=== PATIENT | female | born 1950 | race Caucasian/White ===

== ENCOUNTER → 2017-05-23 15:09 | Outpatient (CLI) | payer MEDICARE, SELFPAY ==
[2017-05-23 15:17] LABS: Bacteria 0 SEEN /hpf (None Seen); Mucous, Urine 0 SEEN /hpf (<or=2+); Red Blood Cells-Urine 0 SEEN /hpf (0-5); White Blood Cells 0 SEEN /hpf (0-5)
[2017-05-23 17:41] LABS: Absolute Lymphocyte Count 1.61 X10^3/ul (0.83-4.51); Absolute Neutrophil Count 7.2 X10^3/uL (2.0-7.7); Basophil# 0.03 X10^3/uL; Basophil% 0.3 % (0-1); Eosinophil# 0.23 X10^3/uL; Eosinophils% 2.4 % (0-5); Hematocrit 39.9 % (37-47); Hemoglobin 12.9 g/dl (12.0-15.0); Lymphocyte # 1.61 X10^3/ul (4.0); Lymphocyte % 16.6 % (19-41); Mean Corp Hgb Conc 32.3 g/gl (32-36); Mean Corpuscular Hgb 27.7 pg (27.0-32.0); Mean Corpuscular Volume 85.6 fL (81-99); Mean Platelet Vol. 12.1 fl (6.2-12.0); Monocyte# 0.64 X10^3/uL; Monocyte% 6.6 % (0-10); Neutrophil # 7.17 X10^3/uL (2.7-7.7); Neutrophil % 73.7 % (47-70); Platelet Count 190 K/mm3 (150-450); RBC Distribution Width CV 15.9 % (11.6-14.6); RBC Distribution Width SD 49.8 fl (35.1-43.9); Red Blood Count 4.66 M/mm3 (4.2-5.4); White Blood Count 9.7 K/mm3 (4.4-11.0)
[2017-05-23 17:51] LABS: POSITIVE COUNT NO; POSITIVE DIFFERENTIAL NO; POSITIVE MORPHOLOGY NO
[2017-05-23 18:05] LABS: Color, Urine Yellow (Yellow); Glucose, Dipstick Normal (Normal); Ketone-Dipstick Negative (Negative); Leukocyte Esterase-Dipstick Negative /ul (Negative); Nitrite-Dipstick Negative (Negative); Occult Blood-Urine Negative /ul (Negative); Protein-Dipstick Negative (Negative); Specific Gravity, Urine 1.015 (1.002-1.030); Urine Bilirubin Dipstick Negative (Negative); Urine Clarity Clear (Clear); Urine Urobilinogen Normal (Normal)
[2017-05-23 18:15] LABS: Squamous Epithelial Cells - UA 0-5 SEEN /hpf (5-10)
[2017-05-23 18:18] LABS: Hemoglobin A1c 7.4 % (4.2-6.3)
[2017-05-23 18:29] LABS: Vitamin D,25 Hydroxy 55.7 ng/mL (29.95-100.01)
[2017-05-23 18:31] LABS: Microalbumin,Random Urine 43.9 mg/L (NO RANGE EST.); Microalbumin:Creatinine Ratio 75.4 mg/g CRE (<30 mg/g CRE)
[2017-05-23 18:42] LABS: ALB/GLOB Ratio 0.8 RATIO (0.9-2.4); AST(SGOT) 13 U/L (15-37); Alanine Aminotransfer ALT/SGPT 25 U/L (13-56); Alkaline Phosphatase 154 U/L (45-117); Anion Gap 9 (5-15); BUN 25 mg/dL (7-18); BUN/Creat Ratio 22.5 RATIO (10-20); Calcium,Total 9.2 mg/dL (8.5-10.1); Chloride 104 mmol/L (98-107); Cholesterol 109 mg/dL (200); Creatinine, Serum 1.11 mg/dL (0.55-1.02); EST Glomerular Filtration Rate 52 mL/min (>60); Est Glom Filt Rate - Afr Amer 63 mL/min (>60); Globulin 3.8 g/dL (2.2-4.2); Glucose 241 mg/dL (74-106); High Density Lipoprotein 46 mg/dL; Magnesium 1.8 mg/dL (1.6-2.6); Potassium 4.1 mmol/L (3.5-5.1); Protein, Total 6.8 g/dL (6.4-8.2); Sodium Level 139 mmol/L (136-145); T4 Free Direct 0.97 ng/dL (0.76-1.46); Thyroid Stim Hormone (TSH) 1.64 uIU/mL (0.358-3.74); Triglycerides 134 mg/dL; Very Low Density Lipoprotein 27 mg/dL (5-40)
[2017-05-27 11:57] LABS: Anti-Thyroglobulin AB < 1.0 IU/mL (0.0-0.9); Thyroglobulin, Serum Qt. 10.3 ng/mL (1.5-38.5); Thyroid Peroxidase AB 17 IU/mL (0-34)
== END ==
PROVIDERS: Family Provider Family Medicine; PCP Family Medicine; Visit Provider Family Medicine
DX: I10 Essential (primary) hypertension (principal); E78.5 Hyperlipidemia, unspecified; E55.9 Vitamin D deficiency, unspecified; E03.9 Hypothyroidism, unspecified; E10.9 Type 1 diabetes mellitus without complications
CPT/HCPCS: 36415; 80053; 80061; 81001; 82043; 82306; 82570; 83036; 83735; 84432; 84439; 84443; 85025; 86376; 86800

== ENCOUNTER → 2017-05-27 09:24 | Outpatient (CLI) | payer MEDICARE, SELFPAY ==
[2017-05-27 12:10] LABS: Anion Gap 11 (5-15); BUN 25 mg/dL (7-18); BUN/Creat Ratio 19.7 RATIO (10-20); Calcium,Total 9.3 mg/dL (8.5-10.1); Chloride 106 mmol/L (98-107); Creatinine, Serum 1.27 mg/dL (0.55-1.02); EST Glomerular Filtration Rate 44 mL/min (>60); Est Glom Filt Rate - Afr Amer 54 mL/min (>60); Glucose 249 mg/dL (74-106); Potassium 4.1 mmol/L (3.5-5.1); Sodium Level 141 mmol/L (136-145)
== END ==
PROVIDERS: Family Provider Family Medicine; PCP Family Medicine; Visit Provider Family Medicine
DX: R94.4 Abnormal results of kidney function studies (principal)
CPT/HCPCS: 36415; 80048

== ENCOUNTER → 2017-06-18 14:43 | Outpatient (CLI) | payer MEDICARE, SELFPAY ==
--- NOTE | 2017-06-18 14:54 | US_ITS ---
STUDY: RENAL ULTRASOUND - COMPLETE REASON FOR EXAM: Female, 67 years old. Elevated BUN/creatinine TECHNIQUE: Ultrasound evaluation of the kidneys was performed with real-time and static lovell-scale imaging. COMPARISON: None. FINDINGS: RIGHT KIDNEY: Normal location of the right kidney, which is normal in size. The right kidney measures 11.7 x 4.9 x 5.3 cm. There is a normal cortex of the right kidney. The renal cortex measures 1.6 cm. There is no right renal mass or cyst. There are no right renal calculi. There is no right hydronephrosis. DISTAL RIGHT URETER: There is non-visualization of the distal right ureter. There is no demonstrated right ureterovesical junction calculus. There is a visualized right ureteral jet. LEFT KIDNEY: Normal location of the left kidney, which is normal in size. The left kidney measures 10.5 x 4.9 x 5.4 cm. There is a normal cortex of the left kidney. The renal cortex measures 1.5 cm. There is no left renal mass or cyst. There is a nonobstructing 8 mm stone. There is no left hydronephrosis. DISTAL LEFT URETER: There is non-visualization of the distal left ureter. There is no demonstrated left ureterovesical junction calculus. There is a visualized left ureteral jet. AORTA: There is no elongation or tortuosity of the abdominal aorta. I.V.C.: The IVC is patent. BLADDER: The bladder is incompletely distended US/Kidney and Bladder IMPRESSION: No suspicious sonographic findings Electronically Signed: Hernando Ross MD at 15:32 EDT , Service support ,
== END ==
PROVIDERS: Family Provider Family Medicine; PCP Family Medicine; Visit Provider Family Medicine
DX: N18.3 Chronic kidney disease, stage 3 (moderate) (principal)
CPT/HCPCS: 76770

== ENCOUNTER → 2017-06-27 08:58 | Outpatient (CLI) | payer MEDICARE, SELFPAY ==
--- NOTE | 2017-06-27 09:05 | RDU_ITS ---
Reason For Study: CKD Right Renal Artery Left Renal Artery Right renal artery ostium Left renal artery ostium 112.0/19.9 143.0/28.0 RSV/EDV. PSV/EDV. Right renal artery proximal Left renal artery proximal PSV/EDV 144.0/28.0 PSV/EDV. 121.0/21.0 . Right renal artery mid 117.0/22.8 Left renal artery mid 114.0/23.7 PSV/EDV. PSV/EDV . Right renal artery distal Left renal artery distal 104.0/19.2 108.0/15.9 PSV/EDV. PSV/EDV. Right Renal Parenchyma Left Renal Parenchyma Upper Pole Medula 39.1/7.9 PSV/EDV. Left upper pole medulla 35.6/8.7 Right upper pole medulla EDR .20 . PSV/EDV . Right upper pole medulla R.I. .80 . Left upper pole medulla EDR .24 . Upper Antonio Cortx 19.9/4.3 PSV/EDV. Left upper pole medulla R.I. .76 . Right upper pole cortex EDR .22 . UP Cortex 30.6/8.7 PSV/EDV. Right upper pole cortex R.I. .78 . Left upper pole cortex EDR .28 . Right lower Pole medulla 26.0/6.1 Left upper pole cortex R.I. .72 . PSV/EDV . Left lower Pole medulla 42.9/8.2 Right lower pole medulla EDR .23 . PSV/EDV . Right lower pole medulla R.I. .76 . Left lower pole medulla EDR .19 . Lower Pole Cortex 27.2/6.7 PSV/EDV. Left lower pole medulla R.I. .81 . Right lower pole cortex EDR .25 . Lower Pole Cortx 26.4/7.3 PSV/EDV. Right lower pole cortex R.I. .75 . Left lower pole cortex EDR .28 . Right Renal Hilar Left lower pole cortex R.I. .72 . Right Hilar avg 77.6/15.9 PSV/EDV. Left Renal Hilar Right hilar acceleration time 59 LT Hilar avg 49.2/8.2 PSV/EDV . m/sec. Left hilar acceleration time 44 Right Renal Dimensions m/sec. Right kidney size 12.1 cm . Left Renal Dimensions Right cortical dimension 1.5 cm . Left kidney size 12.0 cm . Left cortical dimension 1.5 cm . Procedures Technically difficult due to body habitus. Midline view and aorta not visualized. Interpretation Summary Renal artery velocities are bilaterally normal. Acceleration times are normal bilaterally. There is no evidence of hemodynamically significant renal artery stenosis on either side. Renovascular resistance appears to be bilaterally elevated . Cortical dimensions are bilaterally normal. Kidneys appear normal in size bilaterally. Ordering Physician: Declan Mauricio Referring Physician: Declan Mauricio Performed By: Beatriz Hardy RVT
== END ==
PROVIDERS: Family Provider Family Medicine; PCP Family Medicine; Visit Provider Family Medicine
DX: N18.3 Chronic kidney disease, stage 3 (moderate) (principal)
CPT/HCPCS: 93975

== ENCOUNTER → 2017-07-17 10:05 | Outpatient (CLI) | payer MEDICARE, SELFPAY ==
--- NOTE | 2017-07-17 10:09 | RAD_ITS ---
STUDY: X-RAY - RIGHT SHOULDER REASON FOR EXAM: Female, 67 years old. Right shoulder pain. TECHNIQUE: 4 view(s) of the shoulder. COMPARISON: None. FINDINGS: Normal glenohumeral articulation. There is degenerative arthrosis of the acromioclavicular joint without inferior osseous spur formation. Normal acromion. Normal humeral head and visualized proximal humerus. There is periarticular soft tissue calcification consistent with a calcific tendinitis. There is no demonstrated fracture. Normal visualized pulmonary apex. RAD/Shoulder min 2 Views IMPRESSION: No acute fracture or dislocation. Degenerative changes. Calcific tendinitis. Electronically Signed: Cesar Gaffney MD at 17:32 EDT , Service support ,
== END ==
LOC: MTRAD 10:07
PROVIDERS: Family Provider Family Medicine; PCP Family Medicine; Visit Provider Family Medicine
DX: M25.511 Pain in right shoulder (principal)
CPT/HCPCS: 73030

== ENCOUNTER → 2017-11-27 10:56 | Outpatient (CLI) | payer MEDICARE, SELFPAY ==
[2017-11-27 11:02] LABS: Mucous, Urine 0 SEEN /hpf (<or=2+); Red Blood Cells-Urine 0 SEEN /hpf (0-5)
[2017-11-27 12:36] LABS: Absolute Lymphocyte Count 1.68 X10^3/ul (0.83-4.51); Absolute Neutrophil Count 8.5 X10^3/uL (2.0-7.7); Basophil# 0.02 X10^3/uL; Basophil% 0.2 % (0-1); Eosinophil# 0.24 X10^3/uL; Eosinophils% 2.2 % (0-5); Hematocrit 40.6 % (37-47); Hemoglobin 12.6 g/dl (12.0-15.0); Lymphocyte # 1.68 X10^3/ul (4.0); Lymphocyte % 15.1 % (19-41); Mean Corpuscular Hgb 26.5 pg (27.0-32.0); Mean Corpuscular Volume 85.3 fL (81-99); Mean Platelet Vol. 11.7 fl (6.2-12.0); Monocyte# 0.64 X10^3/uL; Monocyte% 5.7 % (0-10); Neutrophil # 8.54 X10^3/uL (2.7-7.7); Neutrophil % 76.5 % (47-70); Platelet Count 162 K/mm3 (150-450); RBC Distribution Width CV 15.6 % (11.6-14.6); RBC Distribution Width SD 49.2 fl (35.1-43.9); Red Blood Count 4.76 M/mm3 (4.2-5.4); White Blood Count 11.2 K/mm3 (4.4-11.0)
[2017-11-27 12:37] LABS: POSITIVE COUNT NO; POSITIVE DIFFERENTIAL NO; POSITIVE MORPHOLOGY NO
[2017-11-27 12:39] LABS: ALB/GLOB Ratio 0.8 RATIO (0.9-2.4); AST(SGOT) 12 U/L (15-37); Alanine Aminotransfer ALT/SGPT 21 U/L (13-56); Alkaline Phosphatase 128 U/L (45-117); Anion Gap 9 (5-15); BUN 17 mg/dL (7-18); BUN/Creat Ratio 13.7 RATIO (10-20); Calcium,Total 9.8 mg/dL (8.5-10.1); Chloride 104 mmol/L (98-107); Cholesterol 101 mg/dL (200); Creatinine, Serum 1.24 mg/dL (0.55-1.02); EST Glomerular Filtration Rate 46 mL/min (>60); Est Glom Filt Rate - Afr Amer 55 mL/min (>60); Globulin 3.9 g/dL (2.2-4.2); Glucose 204 mg/dL (74-106); High Density Lipoprotein 44 mg/dL; Potassium 4.6 mmol/L (3.5-5.1); Protein, Total 6.9 g/dL (6.4-8.2); Sodium Level 143 mmol/L (136-145); Triglycerides 100 mg/dL; Very Low Density Lipoprotein 20 mg/dL (5-40)
[2017-11-27 12:40] LABS: Color, Urine Yellow (Yellow); Glucose, Dipstick Normal (Normal); Ketone-Dipstick Negative (Negative); Leukocyte Esterase-Dipstick Negative /ul (Negative); Nitrite-Dipstick Negative (Negative); Occult Blood-Urine Negative /ul (Negative); Protein-Dipstick 30 mg/dl (Negative); Specific Gravity, Urine 1.015 (1.002-1.030); Urine Bilirubin Dipstick Negative (Negative); Urine Clarity Clear (Clear); Urine Urobilinogen Normal (Normal)
[2017-11-27 12:50] LABS: Bacteria 1+ /hpf (None Seen); Squamous Epithelial Cells - UA 5-10 SEEN /hpf (5-10); White Blood Cells 0-5 SEEN /hpf (0-5)
[2017-11-27 13:00] LABS: Protein, Urine (Random) 44.8 mg/dL (<11.9); Protein:Creat Ratio 264 mg/g CRE (0-200)
[2017-11-28 11:53] LABS: PTHIN 90.7 pg/mL (18.4-80.1)
[2017-11-28 11:59] LABS: Vitamin D,25 Hydroxy 66.3 ng/mL (29.95-100.01)
== END ==
LOC: MFPLAB 10:57
PROVIDERS: Family Provider Family Medicine; PCP Family Medicine; Visit Provider Family Medicine
DX: I12.9 Hypertensive chronic kidney disease with stage 1 through stage 4 chronic kidney disease, or unspecified chronic kidney disease (principal); N18.3 Chronic kidney disease, stage 3 (moderate); E55.9 Vitamin D deficiency, unspecified; E78.5 Hyperlipidemia, unspecified; D35.1 Benign neoplasm of parathyroid gland
CPT/HCPCS: 36415; 80053; 80061; 81001; 82306; 82570; 83970; 84156; 85025

== ENCOUNTER → 2018-03-11 11:26 | Outpatient (CLI) | payer MEDICARE, SELFPAY ==
[2018-03-11 12:40] LABS: Absolute Lymphocyte Count 1.26 X10^3/ul (0.83-4.51); Absolute Neutrophil Count 6.5 X10^3/uL (2.0-7.7); Basophil# 0.02 X10^3/uL; Basophil% 0.2 % (0-1); Eosinophil# 0.22 X10^3/uL; Eosinophils% 2.6 % (0-5); Hematocrit 39.9 % (37-47); Hemoglobin 12.4 g/dl (12.0-15.0); Lymphocyte # 1.26 X10^3/ul (4.0); Lymphocyte % 14.9 % (19-41); Mean Corp Hgb Conc 31.1 g/gl (32-36); Mean Corpuscular Hgb 26.5 pg (27.0-32.0); Mean Corpuscular Volume 85.3 fL (81-99); Mean Platelet Vol. 10.8 fl (6.2-12.0); Monocyte# 0.47 X10^3/uL; Monocyte% 5.5 % (0-10); Neutrophil # 6.46 X10^3/uL (2.7-7.7); Neutrophil % 76.3 % (47-70); Platelet Count 163 K/mm3 (150-450); RBC Distribution Width CV 15.9 % (11.6-14.6); RBC Distribution Width SD 49.3 fl (35.1-43.9); Red Blood Count 4.68 M/mm3 (4.2-5.4); White Blood Count 8.5 K/mm3 (4.4-11.0)
[2018-03-11 12:41] LABS: POSITIVE COUNT NO; POSITIVE DIFFERENTIAL NO; POSITIVE MORPHOLOGY NO
[2018-03-11 12:52] LABS: ALB/GLOB Ratio 0.8 RATIO (0.9-2.4); AST(SGOT) 14 U/L (15-37); Alanine Aminotransfer ALT/SGPT 20 U/L (13-56); Albumin, Serum 2.9 g/dL (3.2-5.0); Alkaline Phosphatase 144 U/L (45-117); Anion Gap 8 (5-15); BUN 17 mg/dL (7-18); Calcium,Total 9.5 mg/dL (8.5-10.1); Chloride 104 mmol/L (98-107); Cholesterol 116 mg/dL (200); Creatinine, Serum 1.21 mg/dL (0.55-1.02); EST Glomerular Filtration Rate 47 mL/min (>60); Est Glom Filt Rate - Afr Amer 57 mL/min (>60); Globulin 3.6 g/dL (2.2-4.2); Glucose 323 mg/dL (74-106); High Density Lipoprotein 45 mg/dL; Potassium 4.4 mmol/L (3.5-5.1); Protein, Total 6.5 g/dL (6.4-8.2); Sodium Level 139 mmol/L (136-145); Triglycerides 160 mg/dL; Very Low Density Lipoprotein 32 mg/dL (5-40)
[2018-03-11 12:57] LABS: Hemoglobin A1c 8.7 % (4.2-6.3)
[2018-03-11 14:55] LABS: Microalbumin:Creatinine Ratio 419.2 mg/g CRE (<30 mg/g CRE); Protein, Urine (Random) 106.3 mg/dL (<11.9); Protein:Creat Ratio 601 mg/g CRE (0-200)
--- OUTSIDE RECORDS SUMMARY | 2018-06-12 15:30 | XMS RPT_ITS ---
:1950 Author Organization [place] Support Name Relationship Address Phone BIRD HAYDEN Unavailable [address] + [address] [place] [address] ESTEBAN REHMAN Unavailable [address] + [place] [address] R Unavailable Unavailable Unavailable BIRD, HAYDEN Unavailable [address] + [address] [place] [address] ESTEBAN REHMAN Unavailable [address] + [place] [address] R Unavailable Unavailable Unavailable BIRD, HAYDEN Unavailable [address] + [address] [place] [address] ESTEBAN REHMAN Unavailable [address] + [place] [address] R Unavailable Unavailable Unavailable BIRD, HAYDEN Unavailable [address] + [address] [place] [address] ESTEBAN REHMAN Unavailable [address] + [place] [address] R Unavailable Unavailable Unavailable BIRD, HAYDEN Unavailable [address] + [address] [place] [address] IRAIS REHMANISTA Unavailable [address] + [place] [address] R Unavailable Unavailable Unavailable BIRD, HAYDEN Unavailable [address] + [address] [place] [address] ESTEBAN REHMAN Unavailable [address] + [place] [address] R Unavailable Unavailable Unavailable BIRD, HAYDEN Unavailable [address] + [address] [place] [address] ESTEBAN REHMAN Unavailable [address] + [place] [address] R Unavailable Unavailable Unavailable Care Team Providers Name Role Phone Declan Mauricio Attending Unavailable Declan aMuricio Primary Care Unavailable Declan Mauricio Attending Unavailable Declan Mauricio Primary Care Unavailable Declan Mauricio Attending Unavailable Declan Mauricio Primary Care Unavailable Declan Mauricio Attending Unavailable Declan Mauricio Referring Unavailable Declan Mauricio Primary Care Unavailable Declan Mauricio Attending Unavailable Declan Mauricio Referring Unavailable Declan Mauricio Primary Care Unavailable Declan Mauricio Attending Unavailable Declan Mauricio Referring Unavailable Declan Mauricio Primary Care Unavailable Declan Mauricio Attending Unavailable Declan Mauricio Primary Care Unavailable PROBLEMS PROBLEMS DATE TYPE CONDITION / CODE ATTENDING STATUS SOURCE 07/17/2017 Unknown M25.511 - Pain Declan Mauricio Active [place] in right [facility] shoulder / Hospital M25.511(ICD-10) Repository 06/27/2017 Unknown N18.3 - Chronic Declan Mauricio Active [place] kidney disease, [facility] stage 3 Hospital (moderate) / Repository N18.3(ICD-10) PROCEDURES PROCEDURES No Procedure Records FoundRESULTS RESULTS CBC W/DIFF, AUTOMATED Collected: 03/11/2018 Status: F Source: [place] 11:28 AM [facility] REPOSITORY TYPE CODE TESTS RESULT OUT OF RANGE REFERENCE UNITS LAB L100.1000 4.4-11.0 K/mm3 Normal WBC 8.5 LAB L100.1200 4.2-5.4 M/mm3 Normal RBC 4.68 LAB L100.1300 12.0-15.0 g/dl Normal HGB 12.4 LAB L100.1400 37-47 % Normal HCT 39.9 LAB L100.1500 81-99 fL Normal MCV 85.3 LAB L100.1600 27.0-32.0 pg Low MCH 26.5 LAB L100.1700 32-36 g/gl Low MCHC 31.1 LAB L100.1810 11.6-14.6 % High RDW CV 15.9 LAB L100.1820 35.1-43.9 fl High RDW SD 49.3 LAB L100.1900 150-450 K/mm3 Normal PLT 163 LAB L100.2000 6.2-12.0 fl Normal MPV 10.8 LAB L100.2100 47-70 % High NEUT% 76.3 LAB L100.2200 19-41 % Low LY% 14.9 LAB L100.2300 0-10 % Normal MONO% 5.5 LAB L100.2400 0-5 % Normal EO% 2.6 LAB L100.2500 0-1 % Normal BASO% 0.2 LAB L100.2550 0.0-0.9 % Normal IM GRAN % 0.500 Result Comment: IG% - Immature Granulocytes (promyelocytes, myelocytes and metamyelocytes) > 1% indicates that a LEFT SHIFT is Present. LAB L100.2620 2.0-7.7 X10 3/uL Normal Absolute Neut 6.5 LAB L100.2720 0.83-4.51 X10 3/ul Normal Absolute Lymph 1.26 Performed By: #### L100.0100 #### [facility] [address] [place], [address] COMPREHENSIVE METABOLIC Collected: 03/11/2018 Status: F Source: [facility] 11:28 AM [facility] REPOSITORY TYPE CODE TESTS RESULT OUT OF RANGE REFERENCE UNITS LAB L501.0100 74-106 mg/dL High GLU 323 Result Comment: Glucose result greater than or equal to 200 mg/dL suggests DIABETES MELLITUS per A.D.A. criteria. Please note revised GLUCOSE reference range effective 2017. LAB L501.1000 7-18 mg/dL Normal BUN 17 LAB L501.1100 0.55-1.02 mg/dL High CREAT,SERUM 1.21 Result Comment: The validity of the calculated GFR AND GFRAA in patients over 70 years has not been determined. Clinical correlation is essential. LAB L501.1110 >60 mL/min Low EST GFR 47 Result Comment: Non- GFR Calc LAB L501.1115 >60 mL/min Low EST GFR - AA 57 Result Comment: GFR Calc LAB L501.1300 10-20 RATIO Normal BUN/CRE 14.0 LAB L501.1500 6.4-8.2 g/dL T Normal PROT 6.5 LAB L501.1800 3.2-5.0 g/dL Low ALB 2.9 LAB L501.1950 2.2-4.2 g/dL Normal GLOB 3.6 LAB L501.2000 0.9-2.4 RATIO Low A/G 0.8 LAB L501.2200 8.5-10.1 mg/dL CA Normal 9.5 LAB L501.4100 15-37 U/L Low AST 14 LAB L501.4305 45-117 U/L High ALK P 144 LAB L501.4405 13-56 U/L Normal ALT 20 LAB L501.4600 0.20-1.00 mg/dL T Normal BILI 0.40 LAB L501.5300 136-145 mmol/L NA Normal 139 LAB L501.5600 3.5-5.1 mmol/L K Normal 4.4 LAB L501.5900 98-107 mmol/L CL Normal 104 LAB L501.6100 21.0-32.0 mmol/L Normal CO2 27.0 LAB L501.6200 5-15 Normal GAP 8 Performed By: #### L500.4050, L500.4100 #### [facility] [address] [place], [place], [address] LIPID PROFILE Collected: 03/11/2018 Status: F Source: [place] 11:28 AM [facility] REPOSITORY TYPE CODE TESTS RESULT OUT OF RANGE REFERENCE UNITS LAB L501.4900 200 mg/dL Normal CHOL 116 Result Comment: <200 mg/dL Desirable 200-240 mg/dL Borderline >240 mg/dL High Risk LAB L501.5000 mg/dL Normal TRIG 160 Result Comment: The drugs N-Acetylcysteine and Metamizole may falsely depress this assay. Serum Triglycerides Reference Interval Normal <150 mg/dL Borderline high 150 - 199 mg/dL High 200 - 499 mg/dL Very High > or = 500 mg/dL LAB L501.6400 mg/dL Normal HDL 45 Result Comment: The drugs N-Acetylcysteine and Metamizole may falsely depress this assay. Reference Range HDL <40 mg/dL Low HDL Cholesterol HDL >or= 60 mg/dL High HDL Cholesterol LAB L501.6500 0-130 mg/dL Normal LDL 39 LAB L501.6600 5-40 mg/dL Normal VLDL 32 Performed By: #### L500.4050, L500.4100 #### [facility] [address] [place], [address] VITAMIN D,25 HYDROXY Collected: 03/11/2018 Status: F Source: [place] 11:28 AM [facility] REPOSITORY TYPE CODE TESTS RESULT OUT OF RANGE REFERENCE UNITS LAB L506.1000 29.95-100.01 ng/mL Normal Vitamin D 55.0 25-OH Result Comment: Vitamin D 25(OH) Status Range Deficiency <20 ng/mL (50nmol/L) Insuffciency 20 - 30 ng/mL (50 - 75 nmol/L) Sufficiency 30 - 100 ng/mL (75 - 250 nmol/L) Toxicity >100 ng/mL (>250 nmol/L) Performed By: #### L506.1000 #### [facility] [address] [place], [address] HEMOGLOBIN A1C Collected: 03/11/2018 Status: F Source: [place] 11:28 AM [facility] REPOSITORY TYPE CODE TESTS RESULT OUT OF RANGE REFERENCE UNITS LAB L501.9985 4.2-6.3 % High HGB A1C 8.7 Performed By: #### L501.9985, L502.0250 #### [facility] [address] [place], [address] MICROALB:CREAT Collected: 03/11/2018 Status: F Source: [place] RATIO,RANDOM UR 11:28 AM [facility] REPOSITORY TYPE CODE TESTS RESULT OUT OF RANGE REFERENCE UNITS LAB L502.0500 NO RANGE EST. mg/L Normal 742.0 MICROALBUMIN ,UR LAB L502.0600 <30 mg/g CRE mg/g CRE High 419.2 MALB:CREAT Performed By: #### L501.9985, L502.0250 #### [facility] [address] [place], [address] PROTEIN+CREATININE Collected: Status: F Source: [facility] RATIO,URINE 03/11/2018 11:28 [facility] TYPE CODE TESTS RESULT OUT OF RANGE REFERENCE UNITS LAB L501.1200 NO RANGE EST. mg/dL Normal UR CREAT 177.00 LAB L501.1930 <11.9 mg/dL High 106.3 PROTEIN,UR.R AN. LAB L501.1940 0-200 mg/g CRE High PROT:CRE 601 RATIO Performed By: #### L501.0900 #### [facility] [address] [place], [address] CBC W/DIFF, AUTOMATED Collected: 11/27/2017 Status: F Source: [place] 10:58 AM [facility] REPOSITORY Order Comment: Order Date: 11/27/17 Order Info: [id number] - CBCD TYPE CODE TESTS RESULT OUT OF RANGE REFERENCE UNITS LAB L100.1000 4.4-11.0 K/mm3 High WBC 11.2 LAB L100.1200 4.2-5.4 M/mm3 Normal RBC 4.76 LAB L100.1300 12.0-15.0 g/dl Normal HGB 12.6 LAB L100.1400 37-47 % Normal HCT 40.6 LAB L100.1500 81-99 fL Normal MCV 85.3 LAB L100.1600 27.0-32.0 pg Low MCH 26.5 LAB L100.1700 32-36 g/gl Low MCHC 31.0 LAB L100.1810 11.6-14.6 % High RDW CV 15.6 LAB L100.1820 35.1-43.9 fl High RDW SD 49.2 LAB L100.1900 150-450 K/mm3 Normal PLT 162 LAB L100.2000 6.2-12.0 fl Normal MPV 11.7 LAB L100.2100 47-70 % High NEUT% 76.5 LAB L100.2200 19-41 % Low LY% 15.1 LAB L100.2300 0-10 % Normal MONO% 5.7 LAB L100.2400 0-5 % Normal EO% 2.2 LAB L100.2500 0-1 % Normal BASO% 0.2 LAB L100.2550 0.0-0.9 % Normal IM GRAN % 0.300 Result Comment: IG% - Immature Granulocytes (promyelocytes, myelocytes and metamyelocytes) > 1% indicates that a LEFT SHIFT is Present. LAB L100.2620 2.0-7.7 X10 3/uL High Absolute Neut 8.5 LAB L100.2720 0.83-4.51 X10 3/ul Normal Absolute Lymph 1.68 Performed By: #### L100.0100, L500.4050, L500.4100, L509.1000, L506.1000 #### [facility] [address] [place], [address] COMPREHENSIVE METABOLIC Collected: 11/27/2017 Status: F Source: [facility] FAITH 10:58 AM [facility] REPOSITORY Order Comment: Order Date: 11/27/17 Order Info: [id number] - CMP Order Info: 98274-1 - LIPID TYPE CODE TESTS RESULT OUT OF RANGE REFERENCE UNITS LAB L501.0100 74-106 mg/dL High GLU 204 Result Comment: Glucose result greater than or equal to 200 mg/dL suggests DIABETES MELLITUS per A.D.A. criteria. Please note revised GLUCOSE reference range effective 2017. LAB L501.1000 7-18 mg/dL Normal BUN 17 LAB L501.1100 0.55-1.02 mg/dL High CREAT,SERUM 1.24 Result Comment: The validity of the calculated GFR AND GFRAA in patients over 70 years has not been determined. Clinical correlation is essential. LAB L501.1110 >60 mL/min Low EST GFR 46 Result Comment: Non- GFR Calc LAB L501.1115 >60 mL/min Low EST GFR - AA 55 Result Comment: GFR Calc LAB L501.1300 10-20 RATIO Normal BUN/CRE 13.7 LAB L501.1500 6.4-8.2 g/dL T Normal PROT 6.9 LAB L501.1800 3.2-5.0 g/dL Low ALB 3.0 LAB L501.1950 2.2-4.2 g/dL Normal GLOB 3.9 LAB L501.2000 0.9-2.4 RATIO Low A/G 0.8 LAB L501.2200 8.5-10.1 mg/dL CA Normal 9.8 LAB L501.4100 15-37 U/L Low AST 12 LAB L501.4305 45-117 U/L High ALK P 128 LAB L501.4405 13-56 U/L Normal ALT 21 LAB L501.4600 0.20-1.00 mg/dL T Normal BILI 0.40 LAB L501.5300 136-145 mmol/L NA Normal 143 LAB L501.5600 3.5-5.1 mmol/L K Normal 4.6 LAB L501.5900 98-107 mmol/L CL Normal 104 LAB L501.6100 21.0-32.0 mmol/L Normal CO2 30.0 LAB L501.6200 5-15 Normal GAP 9 Performed By: #### L100.0100, L500.4050, L500.4100, L509.1000, L506.1000 #### [facility] [address] [place], [place], [address] LIPID PROFILE Collected: 11/27/2017 Status: F Source: [place] 10:58 AM [facility] REPOSITORY Order Comment: Order Date: 11/27/17 Order Info: [id number] - CMP Order Info: 43851-7 - LIPID TYPE CODE TESTS RESULT OUT OF RANGE REFERENCE UNITS LAB L501.4900 200 mg/dL Normal CHOL 101 Result Comment: <200 mg/dL Desirable 200-240 mg/dL Borderline >240 mg/dL High Risk LAB L501.5000 mg/dL Normal TRIG 100 Result Comment: The drugs N-Acetylcysteine and Metamizole may falsely depress this assay. Serum Triglycerides Reference Interval Normal <150 mg/dL Borderline high 150 - 199 mg/dL High 200 - 499 mg/dL Very High > or = 500 mg/dL LAB L501.6400 mg/dL Normal HDL 44 Result Comment: The drugs N-Acetylcysteine and Metamizole may falsely depress this assay. Reference Range HDL <40 mg/dL Low HDL Cholesterol HDL >or= 60 mg/dL High HDL Cholesterol LAB L501.6500 0-130 mg/dL Normal LDL 37 LAB L501.6600 5-40 mg/dL Normal VLDL 20 Performed By: #### L100.0100, L500.4050, L500.4100, L509.1000, L506.1000 #### [facility] [address] [place], [place], [address] PTHIN Collected: 11/27/2017 Status: F Source: [place] 10:58 AM [facility] REPOSITORY Order Comment: Order Date: 11/27/17 Order Info: 0565-1 - PTHIN TYPE CODE TESTS RESULT OUT OF RANGE REFERENCE UNITS LAB L509.1000 18.4-80.1 pg/mL High PTHIN 90.7 Performed By: #### L100.0100, L500.4050, L500.4100, L509.1000, L506.1000 #### [facility] [address] [place], [place], [address] VITAMIN D,25 HYDROXY Collected: 11/27/2017 Status: F Source: [place] 10:58 AM [facility] REPOSITORY Order Comment: Order Date: 11/27/17 Order Info: [id number] - VITD25 TYPE CODE TESTS RESULT OUT OF RANGE REFERENCE UNITS LAB L506.1000 29.95-100.01 ng/mL Normal Vitamin D 66.3 25-OH Result Comment: Vitamin D 25(OH) Status Range Deficiency <20 ng/mL (50nmol/L) Insuffciency 20 - 30 ng/mL (50 - 75 nmol/L) Sufficiency 30 - 100 ng/mL (75 - 250 nmol/L) Toxicity >100 ng/mL (>250 nmol/L) Performed By: #### L100.0100, L500.4050, L500.4100, L509.1000, L506.1000 #### [facility] [address] [place], [place], [id number] URINALYSIS, COMPLETE Collected: 11/27/2017 Status: F Source: [place] 10:58 [facility] REPOSITORY Order Comment: How was Urine Obtained? CLEAN CATCH TYPE CODE TESTS RESULT OUT OF RANGE REFERENCE UNITS LAB L400.3000 Yellow COLOR Normal Yellow LAB L400.3050 Clear Normal CLARITY Clear LAB L400.3200 Normal mg/dl Normal GLUCOSE, UR Normal LAB L400.3300 Negative mg/dL Normal BILIRUBIN URINE Negative LAB L400.3400 Negative mg/dl Normal KETONE UR Negative LAB L400.3465 1.002-1.030 Normal SP.GR. DIPSTX 1.015 LAB L400.3550 5.0 - 8.0 pH UR Normal 5.0 LAB L400.3600 Negative mg/dl High PROT 30 DIPSTX LAB L400.3700 Normal mg/dl Normal UROBILI Normal LAB L400.3750 Negative Normal NITRITE UR Negative LAB L400.3780 Negative /ul Normal OCCULT BLOOD-UR Negative LAB L400.3800 Negative /ul LEUK Normal ESTERASE Negative LAB L400.4050 0-5 /hpf WBC Normal 0-5 SEEN LAB L400.4100 0-5 /hpf 0 Normal RBC-UA SEEN LAB L400.4150 5-10 /hpf SQUAM Normal EPI 5-10 SEEN LAB L400.4300 None Seen /hpf 1+ Normal BACTERIA LAB L400.4350 <or=2+ /hpf 0 Normal MUCUS, URINE SEEN Performed By: #### L400.0001 #### [facility] [address] [place], [address] PROTEIN+CREATININE Collected: Status: F Source: [facility] 11/27/2017 10:58 AM [facility] REPOSITORY TYPE CODE TESTS RESULT OUT OF RANGE REFERENCE UNITS LAB L501.1200 NO RANGE EST. mg/dL Normal UR CREAT 170.00 LAB L501.1930 <11.9 mg/dL High 44.8 PROTEIN,UR.R AN. LAB L501.1940 0-200 mg/g CRE High PROT:CRE 264 RATIO Performed By: #### L501.0900 #### [facility] [address] [place], [address] SHOULDER MIN 2 VIEWS Observed: 07/17/2017 Status: F Source: [place] 10:09 AM [facility] REPOSITORY [facility] Imaging Services [address] [place] [address] Shoulder min 2 Views MR#: [id number] Acct: [id number] Name: GENOVEVA REHMAN Rep #: [id number] : 1950 F 67 From: Cesar Gaffney MD PCP: Declan Mauricio MD Status: REG CLI Study: Shoulder min 2 Views Date of Exam: 07/17/17 Exam# [id number] Ordering Dr: Declan Mauricio MD STUDY: X-RAY - RIGHT SHOULDER REASON FOR EXAM: Female, 67 years old. Right shoulder pain. TECHNIQUE: 4 view(s) of the shoulder. COMPARISON: None. FINDINGS: Normal glenohumeral articulation. There is degenerative arthrosis of the acromioclavicular joint without inferior osseous spur formation. Normal acromion. Normal humeral head and visualized proximal humerus. There is periarticular soft tissue calcification consistent with a calcific tendinitis. There is no demonstrated fracture. Normal visualized pulmonary apex. RAD/Shoulder min 2 Views IMPRESSION: No acute fracture or dislocation. Degenerative changes. Calcific tendinitis. Electronically Signed: Cesar Gaffney MD at 17:32 EDT , Service support , CC: Declan Mauricio MD Horse Breaker: Signed RENAL ARTERY DUPLEX Observed: 06/29/2017 Status: F Source: [place] 12:05 PM [facility] REPOSITORY [facility] Cardiovascular Services [address] [place] [address] Renal Artery Duplex Ultrasound 06/27/17 0908 MR#: [id number] Acct: [id number] Name: GENOVEVA REHMAN Rep #: [id number] : 1950 67 From: Josué Velarde MD Attending Dr: Declan Mauricio MD Status: REG CLI Ordering Dr: Declan Mauricio MD Date: 06/27/17 Location: [facility] Sex: F C Admitted: Reason For Study: CKD Right Renal Artery Left Renal Artery Right renal artery ostium Left renal artery ostium 112.0/19.9 143.0/28.0 RSV/EDV. PSV/EDV. Right renal artery proximal Left renal artery proximal PSV/EDV 144.0/28.0 PSV/EDV. 121.0/21.0 . Right renal artery mid 117.0/22.8 Left renal artery mid 114.0/23.7 PSV/EDV. PSV/EDV . Right renal artery distal Left renal artery distal 104.0/19.2 108.0/15.9 PSV/EDV. PSV/EDV. Right Renal Parenchyma Left Renal Parenchyma Upper Pole Medula 39.1/7.9 PSV/EDV. Left upper pole medulla 35.6/8.7 Right upper pole medulla EDR .20 . PSV/EDV . Right upper pole medulla R.I. .80 . Left upper pole medulla EDR .24 . Upper Antonio Cortx 19.9/4.3 PSV/EDV. Left upper pole medulla R.I. .76 . Right upper pole cortex EDR .22 . UP Cortex 30.6/8.7 PSV/EDV. Right upper pole cortex R.I. .78 . Left upper pole cortex EDR .28 . Right lower Pole medulla 26.0/6.1 Left upper pole cortex R.I. .72 . PSV/EDV . Left lower Pole medulla 42.9/8.2 Right lower pole medulla EDR .23 . PSV/EDV . Right lower pole medulla R.I. .76 . Left lower pole medulla EDR .19 . Lower Pole Cortex 27.2/6.7 PSV/EDV. Left lower pole medulla R.I. .81 . Right lower pole cortex EDR .25 . Lower Pole Cortx 26.4/7.3 PSV/EDV. Right lower pole cortex R.I. .75 . Left lower pole cortex EDR .28 . Right Renal Hilar Left lower pole cortex R.I. .72 . Right Hilar avg 77.6/15.9 PSV/EDV. Left Renal Hilar Right hilar acceleration time 59 LT Hilar avg 49.2/8.2 PSV/EDV . m/sec. Left hilar acceleration time 44 Right Renal Dimensions m/sec. Right kidney size 12.1 cm . Left Renal Dimensions Right cortical dimension 1.5 cm . Left kidney size 12.0 cm . Left cortical dimension 1.5 cm . Procedures Technically difficult due to body habitus. Midline view and aorta not visualized. Interpretation Summary Renal artery velocities are bilaterally normal. Acceleration times are normal bilaterally. There is no evidence of hemodynamically significant renal artery stenosis on either side. Renovascular resistance appears to be bilaterally elevated . Cortical dimensions are bilaterally normal. Kidneys appear normal in size bilaterally. Ordering Physician: Declan Mauricio Referring Physician: Declan Mauricio Performed By: Beatriz Hardy RVT 06/29/17 1204 Date Josué Velarde MD CC: Declan Mauricio MD Date Dictated: 06/27/17 0908 Date Transcribed: 06/29/17 1204 Horse Breaker: Signed KIDNEY AND BLADDER Observed: 06/18/2017 Status: F Source: [place] 2:54 PM [facility] REPOSITORY [facility] Imaging Services [address] [place] [address] [place] [address] Kidney and Bladder MR#: [id number] Acct: [id number] Name: GENOVEVA REHMAN Rep #: [id number] : 1950 F 67 From: Frank Ross MD PCP: Declan Mauricio MD Status: REG CLI Study: Kidney and Bladder Date of Exam: 06/18/17 Exam# [id number] Ordering Dr: Declan Mauricio MD STUDY: RENAL ULTRASOUND - COMPLETE REASON FOR EXAM: Female, 67 years old. Elevated BUN/creatinine TECHNIQUE: Ultrasound evaluation of the kidneys was performed with real-time and static lovell-scale imaging. COMPARISON: None. FINDINGS: RIGHT KIDNEY: Normal location of the right kidney, which is normal in size. The right kidney measures 11.7 x 4.9 x 5.3 cm. There is a normal cortex of the right kidney. The renal cortex measures 1.6 cm. There is no right renal mass or cyst. There are no right renal calculi. There is no right hydronephrosis. DISTAL RIGHT URETER: There is non-visualization of the distal right ureter. There is no demonstrated right ureterovesical junction calculus. There is a visualized right ureteral jet. LEFT KIDNEY: Normal location of the left kidney, which is normal in size. The left kidney measures 10.5 x 4.9 x 5.4 cm. There is a normal cortex of the left kidney. The renal cortex measures 1.5 cm. There is no left renal mass or cyst. There is a nonobstructing 8 mm stone. There is no left hydronephrosis. DISTAL LEFT URETER: There is non-visualization of the distal left ureter. There is no demonstrated left ureterovesical junction calculus. There is a visualized left ureteral jet. AORTA: There is no elongation or tortuosity of the abdominal aorta. I.V.C.: The IVC is patent. BLADDER: The bladder is incompletely distended US/Kidney and Bladder IMPRESSION: No suspicious sonographic findings Electronically Signed: Hernando Ross MD at 15:32 EDT , Service support , CC: Declan Mauricio MD Horse Breaker: Signed BASIC METABOLIC Collected: 05/27/2017 Status: F Source: [place] PROFILE (BMP) 9:26 AM [facility] REPOSITORY Order Comment: Order Date: 05/23/17 Order Info: [id number] - BMP TYPE CODE TESTS RESULT OUT OF RANGE REFERENCE UNITS LAB L501.0100 74-106 mg/dL High GLU 249 Result Comment: Glucose result greater than or equal to 200 mg/dL suggests DIABETES MELLITUS per A.D.A. criteria. Please note revised GLUCOSE reference range effective 2017. LAB L501.1000 7-18 mg/dL High BUN 25 LAB L501.1100 0.55-1.02 mg/dL High CREAT,SERUM 1.27 Result Comment: The validity of the calculated GFR AND GFRAA in patients over 70 years has not been determined. Clinical correlation is essential. LAB L501.1110 >60 mL/min Low EST GFR 44 Result Comment: Non- GFR Calc LAB L501.1115 >60 mL/min Low EST GFR - AA 54 Result Comment: GFR Calc LAB L501.1300 10-20 RATIO Normal BUN/CRE 19.7 LAB L501.2200 8.5-10.1 mg/dL CA Normal 9.3 LAB L501.5300 136-145 mmol/L NA Normal 141 LAB L501.5600 3.5-5.1 mmol/L K Normal 4.1 LAB L501.5900 98-107 mmol/L CL Normal 106 LAB L501.6100 21.0-32.0 mmol/L Normal CO2 24.0 LAB L501.6200 5-15 Normal GAP 11 Performed By: #### L500.2500 #### [facility] [address] [place], [address] CBC W/DIFF, AUTOMATED Collected: 05/23/2017 Status: F Source: [place] 3:13 PM [facility] REPOSITORY Order Comment: Order Date: 05/23/17 Order Info: 0184-1 - CBCD TYPE CODE TESTS RESULT OUT OF RANGE REFERENCE UNITS LAB L100.1000 4.4-11.0 K/mm3 Normal WBC 9.7 LAB L100.1200 4.2-5.4 M/mm3 Normal RBC 4.66 LAB L100.1300 12.0-15.0 g/dl Normal HGB 12.9 LAB L100.1400 37-47 % Normal HCT 39.9 LAB L100.1500 81-99 fL Normal MCV 85.6 LAB L100.1600 27.0-32.0 pg Normal MCH 27.7 LAB L100.1700 32-36 g/gl Normal MCHC 32.3 LAB L100.1810 11.6-14.6 % High RDW CV 15.9 LAB L100.1820 35.1-43.9 fl High RDW SD 49.8 LAB L100.1900 150-450 K/mm3 Normal PLT 190 LAB L100.2000 6.2-12.0 fl High MPV 12.1 LAB L100.2100 47-70 % High NEUT% 73.7 LAB L100.2200 19-41 % Low LY% 16.6 LAB L100.2300 0-10 % Normal MONO% 6.6 LAB L100.2400 0-5 % Normal EO% 2.4 LAB L100.2500 0-1 % Normal BASO% 0.3 LAB L100.2550 0.0-0.9 % Normal IM GRAN % 0.400 Result Comment: IG% - Immature Granulocytes (promyelocytes, myelocytes and metamyelocytes) > 1% indicates that a LEFT SHIFT is Present. LAB L100.2620 2.0-7.7 X10 3/uL Normal Absolute Neut 7.2 LAB L100.2720 0.83-4.51 X10 3/ul Normal Absolute Lymph 1.61 Performed By: #### L100.0100, L501.9985, L506.1000, L502.0250, L500.4050, L500.4100, L501.5200, L501.9520 #### [facility] [address] [place], [place], [id number] HEMOGLOBIN A1C Collected: 05/23/2017 Status: F Source: [place] 3:13 PM [facility] REPOSITORY Order Comment: Order Date: 05/23/17 Order Info: 4548-4 - A1C TYPE CODE TESTS RESULT OUT OF RANGE REFERENCE UNITS LAB L501.9985 4.2-6.3 % High HGB A1C 7.4 Performed By: #### L100.0100, L501.9985, L506.1000, L502.0250, L500.4050, L500.4100, L501.5200, L501.9520 #### [facility] [address] [place], [place], [id number] VITAMIN D,25 HYDROXY Collected: 05/23/2017 Status: F Source: [place] 3:13 PM [facility] [place] REPOSITORY Order Comment: Order Date: 05/23/17 Order Info: [id number] - VITD25 TYPE CODE TESTS RESULT OUT OF RANGE REFERENCE UNITS LAB L506.1000 29.95-100.01 ng/mL Normal Vitamin D 55.7 25-OH Result Comment: Vitamin D 25(OH) Status Range Deficiency <20 ng/mL (50nmol/L) Insuffciency 20 - 30 ng/mL (50 - 75 nmol/L) Sufficiency 30 - 100 ng/mL (75 - 250 nmol/L) Toxicity >100 ng/mL (>250 nmol/L) Performed By: #### L100.0100, L501.9985, L506.1000, L502.0250, L500.4050, L500.4100, L501.5200, L501.9520 #### [facility] [address] [place], [place], [address] MICROALB:CREAT Collected: 05/23/2017 Status: F Source: [place] [facility] UR 3:13 PM [facility] REPOSITORY Order Comment: Order Date: 05/23/17 Order Info: [id number] - MIACRE TYPE CODE TESTS RESULT OUT OF RANGE REFERENCE UNITS LAB L501.1200 NO RANGE EST. mg/dL Normal UR CREAT 58.20 LAB L502.0500 NO RANGE EST. mg/L Normal 43.9 MICROALBUMIN ,UR LAB L502.0600 <30 mg/g CRE mg/g CRE High 75.4 MALB:CREAT Performed By: #### L100.0100, L501.9985, L506.1000, L502.0250, L500.4050, L500.4100, L501.5200, L501.9520 #### [facility] [address] [place], [address] COMPREHENSIVE METABOLIC Collected: 05/23/2017 Status: F Source: [place] PROFIL 3:13 PM [facility] REPOSITORY Order Comment: Order Date: 05/23/17 Order Info: [id number] - CMP Order Info: [id number] - LIPID Order Info: [id number] - MG Order Info: 3016-3 - TSH Order Info: 3024-7 - T4F TYPE CODE TESTS RESULT OUT OF RANGE REFERENCE UNITS LAB L501.0100 74-106 mg/dL High GLU 241 Result Comment: Glucose result greater than or equal to 200 mg/dL suggests DIABETES MELLITUS per A.D.A. criteria. Please note revised GLUCOSE reference range effective 2017. LAB L501.1000 7-18 mg/dL High BUN 25 LAB L501.1100 0.55-1.02 mg/dL High CREAT,SERUM 1.11 Result Comment: The validity of the calculated GFR AND GFRAA in patients over 70 years has not been determined. Clinical correlation is essential. LAB L501.1110 >60 mL/min Low EST GFR 52 Result Comment: Non- GFR Calc LAB L501.1115 >60 mL/min Normal EST GFR - AA 63 Result Comment: GFR Calc LAB L501.1300 10-20 RATIO High BUN/CRE 22.5 LAB L501.1500 6.4-8.2 g/dL T Normal PROT 6.8 LAB L501.1800 3.2-5.0 g/dL Low ALB 3.0 LAB L501.1950 2.2-4.2 g/dL Normal GLOB 3.8 LAB L501.2000 0.9-2.4 RATIO Low A/G 0.8 LAB L501.2200 8.5-10.1 mg/dL CA Normal 9.2 LAB L501.4100 15-37 U/L Low AST 13 LAB L501.4305 45-117 U/L High ALK P 154 LAB L501.4405 13-56 U/L Normal ALT 25 Result Comment: Please note revised ALT reference range effective 2017. LAB L501.4600 0.20-1.00 mg/dL Normal T BILI 0.30 LAB L501.5300 136-145 mmol/L Normal NA 139 LAB L501.5600 3.5-5.1 mmol/L Normal K 4.1 LAB L501.5900 98-107 mmol/L Normal CL 104 LAB L501.6100 21.0-32.0 mmol/L Normal CO2 26.0 LAB L501.6200 5-15 Normal GAP 9 Performed By: #### L100.0100, L501.9985, L506.1000, L502.0250, L500.4050, L500.4100, L501.5200, L501.9520 #### [facility] [place] [address], [address] LIPID PROFILE Collected: 05/23/2017 Status: F Source: [place] 3:13 PM [facility] REPOSITORY Order Comment: Order Date: 05/23/17 Order Info: [id number] - CMP Order Info: [id number] - LIPID Order Info: [id number] - MG Order Info: 3016-3 - TSH Order Info: 3024-7 - T4F TYPE CODE TESTS RESULT OUT OF RANGE REFERENCE UNITS LAB L501.4900 200 mg/dL Normal CHOL 109 Result Comment: <200 mg/dL Desirable 200-240 mg/dL Borderline >240 mg/dL High Risk LAB L501.5000 mg/dL Normal TRIG 134 Result Comment: The drugs N-Acetylcysteine and Metamizole may falsely depress this assay. Serum Triglycerides Reference Interval Normal <150 mg/dL Borderline high 150 - 199 mg/dL High 200 - 499 mg/dL Very High > or = 500 mg/dL LAB L501.6400 mg/dL Normal HDL 46 Result Comment: The drugs N-Acetylcysteine and Metamizole may falsely depress this assay. Reference Range HDL <40 mg/dL Low HDL Cholesterol HDL >or= 60 mg/dL High HDL Cholesterol LAB L501.6500 0-130 mg/dL Normal LDL 36 LAB L501.6600 5-40 mg/dL Normal VLDL 27 Performed By: #### L100.0100, L501.9985, L506.1000, L502.0250, L500.4050, L500.4100, L501.5200, L501.9520 #### [facility] [address] [place], [address] MAGNESIUM Collected: 05/23/2017 Status: F Source: [place] 3:13 PM [facility] REPOSITORY Order Comment: Order Date: 05/23/17 Order Info: [id number] - CMP Order Info: [id number] - LIPID Order Info: [id number] - MG Order Info: 3016-3 - TSH Order Info: 3024-7 - T4F TYPE CODE TESTS RESULT OUT OF RANGE REFERENCE UNITS LAB L501.5200 1.6-2.6 mg/dL Normal MG 1.8 Result Comment: Please note revised Magnesium reference range effective 2017. Performed By: #### L100.0100, L501.9985, L506.1000, L502.0250, L500.4050, L500.4100, L501.5200, L501.9520 #### [facility] [address] [place], [place], [id number] THYROID STIM HORMONE Collected: 05/23/2017 Status: F Source: [place] (TSH) 3:13 PM [facility] REPOSITORY Order Comment: Order Date: 05/23/17 Order Info: [id number] - CMP Order Info: [id number] - LIPID Order Info: [id number] - MG Order Info: 3016-3 - TSH Order Info: 3024-7 - T4F TYPE CODE TESTS RESULT OUT OF RANGE REFERENCE UNITS LAB L501.9520 0.358-3.74 uIU/mL Normal TSH 1.64 Performed By: #### L100.0100, L501.9985, L506.1000, L502.0250, L500.4050, L500.4100, L501.5200, L501.9520 #### [facility] [address] [place], [place], [address] URINALYSIS, COMPLETE Collected: 05/23/2017 Status: F Source: [place] 3:13 PM [facility] REPOSITORY Order Comment: How was Urine Obtained? CLEAN CATCH TYPE CODE TESTS RESULT OUT OF RANGE REFERENCE UNITS LAB L400.3000 Yellow COLOR Normal Yellow LAB L400.3050 Clear Normal CLARITY Clear LAB L400.3200 Normal mg/dl Normal GLUCOSE, UR Normal LAB L400.3300 Negative mg/dL Normal BILIRUBIN URINE Negative LAB L400.3400 Negative mg/dl Normal KETONE UR Negative LAB L400.3465 1.002-1.030 Normal SP.GR. DIPSTX 1.015 LAB L400.3550 5.0 - 8.0 pH UR Normal 5.0 LAB L400.3600 Negative mg/dl PROT Normal DIPSTX Negative LAB L400.3700 Normal mg/dl Normal UROBILI Normal LAB L400.3750 Negative Normal NITRITE UR Negative LAB L400.3780 Negative /ul Normal OCCULT BLOOD-UR Negative LAB L400.3800 Negative /ul LEUK Normal ESTERASE Negative LAB L400.4050 0-5 /hpf WBC 0 Normal SEEN LAB L400.4100 0-5 /hpf 0 Normal RBC-UA SEEN LAB L400.4150 5-10 /hpf SQUAM Normal EPI 0-5 SEEN LAB L400.4300 None Seen /hpf 0 Normal BACTERIA SEEN LAB L400.4350 <or=2+ /hpf 0 Normal MUCUS, URINE SEEN Performed By: #### L400.0001 #### [facility] [address] [place], [address] T4 FREE DIRECT Collected: 05/23/2017 Status: F Source: [place] 3:13 PM [facility] REPOSITORY Order Comment: Order Date: 05/23/17 Order Info: [id number] - CMP Order Info: [id number] - LIPID Order Info: [id number] - MG Order Info: 3016-3 - TSH Order Info: 3024-7 - T4F TYPE CODE TESTS RESULT OUT OF RANGE REFERENCE UNITS LAB L506.0400 0.76-1.46 ng/dL Normal T4 FREE 0.97 DIRECT Performed By: #### L506.0400 #### [facility] [address] [facility] [place], [address] THYROGLOBULIN W/ANTI-TG Collected: 05/23/2017 Status: F Source: [place] AB 3:13 PM [facility] REPOSITORY TYPE CODE TESTS RESULT OUT OF RANGE REFERENCE UNITS LAB L3300.7025 0.0-0.9 IU/mL Normal ANTI-TG < 1.0 AB Result Comment: Thyroglobulin Antibody measured by [employer] LAB L3400.1030 1.5-38.5 ng/mL Normal THYROGLOB 10.3 Result Comment: According to the National Academy of Clinical Biochemistry, the reference interval for Thyroglobulin (TG) should be related to euthyroid patients and not for patients who underwent thyroidectomy. TG reference intervals for these patients depend on the residual mass of the thyroid tissue left after surgery. Establishing a post-operative baseline is recommended. The assay limit of quantitation is 0.1 ng/mL Thyroglobulin measured by [employer]ometric Assay Performed By: #### L3300.6820, L3300.6900 #### [facility] (refer to report for specific site) refer to report for address and phone number THYROID PEROXIDASE AB Collected: 05/23/2017 Status: F Source: [place] 3:13 PM [facility] REPOSITORY TYPE CODE TESTS RESULT OUT OF RANGE REFERENCE UNITS LAB L3300.6900 0-34 IU/mL Normal TPO AB 17 6676 Result Comment: Performed at: [facility] [id number] Lumber Inspector: Willard Garrison PhD, Phone: [phone] Performed By: #### L3300.6820, L3300.6900 #### [facility] (refer to report for specific site) refer to report for address and phone number ALLERGIES ALLERGIES DATE TYPE / CODE NAME / CODE REACTION SEVERITY SOURCE 06/07/19 Drug cyclobenzaprine Other Unknown [place] 17 Allergy/[id number] HCl/[id number]([facility]NO [facility] (SNOMED CT) RM) Hospital Repository 06/07/19 Drug amlodipine Other Unknown [place] 17 Allergy/102608494 besylate/A657066972 [facility] (SNOMED CT) (RXNORM) Hospital Repository 06/07/19 Drug glyburide,micronize Unknown Unknown [place] 17 Allergy/650868725 d/G260496932(RXNORM [facility] (SNOMED CT) ) Hospital Repository 06/07/19 Drug cephalexin Anaphylaxis Unknown [place] 17 Allergy/138395820 monohydrate/D057891 [facility] (SNOMED CT) 830(RXNORM) Hospital Repository 06/07/19 Drug gtgph-Z-dlgacerpeya Other Unknown [place] 17 Allergy/072171552 se/K467882091(RXNOR [facility] (SNOMED CT) M) Hospital Repository 06/07/19 Drug ROEL Other Unknown [place] 17 Allergy/237246493 Inhibitors/G5368033 [facility] (SNOMED CT) 47(RXNORM) Hospital Repository 06/07/19 Drug Sulfa (Sulfonamide Rash Unknown [place] 17 Allergy/494208631 Antibiotics)/J24591 [facility] (SNOMED CT) 0491(RXNORM) Hospital Repository 06/07/19 Drug Tetanus Vaccines Anaphylaxis Unknown [place] 17 Allergy/693096403 and [facility] (SNOMED CT) Toxoid/A647756547([facility] 06/07/19 Drug theophylline/C77511 Unknown Unknown [place] 17 Allergy/287481464 0602(RXNORM) [facility] (SNOMED CT) Hospital Repository 06/07/19 Drug lovastatin/Q9751574 Nausea Unknown [place] 17 Allergy/885300694 63(RXNORM) [facility] (OMED CT) Hospital Repository 06/07/19 Drug cefaclor/R550904159 Unknown Unknown [place] 17 Allergy/025340836 (RXNORM) [facility] (OMED CT) Hospital Repository 06/07/19 Drug clindamycin/I947669 Shortness of Unknown [place] 17 Allergy/215891655 794(RXNORM) breath [facility] ([facility] CT) Hospital Repository 06/07/19 Drug terfenadine/K525621 Unknown Unknown [place] 17 Allergy/293375938 412(RXNORM) [facility] (OMED CT) Hospital Repository 06/07/19 Drug celecoxib/A27592586 Unknown Unknown [place] 17 Allergy/550234505 1(RXNORM) [facility] ([facility] CT) Hospital Repository 05/26/19 Miscellaneous BEANO W/ NORVASC Other Unknown [place] 17 Allergy/038993769 [facility] (OMED CT) Hospital Repository 05/26/19 Miscellaneous ENVIROMENTAL Unknown Unknown [place] 17 Allergy/071032285 ALLERGIES [facility] ([facility] CT) Hospital Repository ENCOUNTERS ENCOUNTERS ADMIT/DISCHARGE ACCOUNT ADMITTING ENCOUNTER LOCATION SOURCE NUMBER CLASS 03/11/2018 [id number] Ambulatory [place] 1 [facility] ing:MFPLAB Repository 11/27/2017 [id number] Ambulatory [place] 6 [facility] ing:MFPLAB Repository 07/17/2017 [id number] Ambulatory [place] 2 [facility] Hospital ing:MTRAD Repository 06/27/2017 [id number] Ambulatory [place] 9 [facility] ing:CVS Repository 06/18/2017 [id number] Ambulatory [place] 5 [facility] Hospital ing:US Repository 05/27/2017 [id number] Ambulatory [place] 5 [facility] ing:MFPLAB Repository 05/23/2017 [id number] Ambulatory [place] 9 [facility] ing:MFPLAB Repository PAYERS PAYERS ENCOUNTER GUARANTOR PAYER SUBSCRIBER SOURCE 03/11/2018 Genoveva A Primary Genoveva A [place] [id number] Insurance:[employer] DearthDOB: [place] MED[id number] Repository [address]Ipq: 330 [id number] [phone] (HP) Date:8793-10-[address] [place] [address]EO: 03/11/2018 Secondary NOT GIVENUNK [place] Insurance:SELF PAY [facility] Number: Effective Repository Date:2018-03-11 11/27/2017 Genoveva A Primary Genoveva A [place] [id number] Insurance:[employer] DearthDOB: [place] MEDIC[place]Policy [id number] Number: Repository [address]Sir: 330 [id number] [phone] (HP) Date:9266-39-[address] [place] [address]IG: 11/27/2017 Secondary NOT GIVENUNK [place] Insurance:SELF PAY [facility] Number: Effective Repository Date:2017-11-27 07/17/2017 Genoveva A Primary Genoveva A [place] [id number] Insurance:SUMMA CARE DeartOB: [place] MEDICAREPolicy [id number] Number: Repository [address]Cth: [id number] [phone] Date:2331-01-69ZD [address] ([address]) [place] [address]WS: 07/17/2017 Secondary NOT GIVENUNK [place] Insurance:SELF PAY [facility] Number: Effective Repository Date:2017-07-17 06/27/2017 Genoveva A Primary Genoveva A [place] [id number] Insurance:[employer] CARE DeartOB: [place] MEDICAREPolicy [id number] Number: Repository [address]Qez: [id number] [phone] Date:8417-08-13AQ [address] (HP) [address] [place] [address]XY: 06/27/2017 Secondary NOT GIVENUNK [place] Insurance:SELF PAY [facility]: Effective Repository Date:2017-06-16 06/18/2017 Genoveva A Primary Genoveva A [place] [id number] Insurance:[employer] CARE DearthDOB: [place] MEDICAREPolicy [id number] Number: Repository [address]Bmg: [id number] [phone] Date:5843-69-89QC [address] (HP) [address] [place] [address]RJ: 06/18/2017 Secondary NOT GIVENUNK [place] Insurance:SELF PAY [facility] Number: Effective Repository Date:2017-06-16 05/27/2017 Genoveva A Primary Genoveva A [place] [id number] Insurance:[employer] CARE DeartOB: [place] MEDICAREPolicy [id number] [place] Number: Repository [address]Ada: [id number] [phone] Date:0284-55-64KV [address] (HP) [place] [address]MI: 05/27/2017 Secondary NOT GIVENUNK [place] Insurance:SELF PAY [facility] Number: Effective Repository Date:2017-05-27 05/23/2017 Genoveva A Primary Genoveva A [place] [id number] Insurance:[employer] CARE DeartOB: [place] MEDICAREPolicy [id number][place] Number: Repository [address]Phx: [id number] [phone] Date:0805-14-62LM [address] (HP) [address] [place] [address]MZ: 05/23/2017 Secondary NOT GIVENUNK [place] Insurance:SELF PAY [facility] Number: Effective Repository Date:2017-05-23
== END ==
LOC: MFPLAB 11:27
PROVIDERS: Family Provider Family Medicine; PCP Family Medicine; Visit Provider Family Medicine
DX: E55.9 Vitamin D deficiency, unspecified (principal); E78.5 Hyperlipidemia, unspecified; N18.3 Chronic kidney disease, stage 3 (moderate); I12.9 Hypertensive chronic kidney disease with stage 1 through stage 4 chronic kidney disease, or unspecified chronic kidney disease; E10.9 Type 1 diabetes mellitus without complications
CPT/HCPCS: 36415; 80053; 80061; 82043; 82306; 82570; 83036; 84156; 85025

== ENCOUNTER → 2018-04-21 10:33 | Outpatient (CLI) | payer MEDICARE, SELFPAY ==
--- NOTE | 2018-04-21 10:39 | RAD_ITS ---
STUDY: X-RAY - LEFT HIP and pelvis REASON FOR EXAM: Female, 68 years old. Hip pain TECHNIQUE: 2 views of the hip. AP view of the pelvis COMPARISON: None. FINDINGS: The study is technically limited secondary to patient obesity. The bony pelvis is intact with no evidence of fracture or lytic or blastic osseous process. There are mild arthritic changes with joint space narrowing of the left and right hips. 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 Electronically Signed: Shemar Ortez MD at 22:32 EST , Service support ,
== END ==
LOC: MTRAD 10:37
PROVIDERS: Family Provider Family Medicine; PCP Family Medicine; Referring Provider Family Medicine; Visit Provider Family Medicine
DX: M25.552 Pain in left hip (principal)
CPT/HCPCS: 73502

== ENCOUNTER → 2018-05-01 15:14 | Outpatient (CLI) | payer MEDICARE, SELFPAY ==
[2018-05-01 17:57] LABS: Vitamin B12 355 pg/mL (211-911)
== END ==
PROVIDERS: Family Provider Family Medicine; PCP Family Medicine; Visit Provider Family Medicine
DX: R41.3 Other amnesia (principal)
CPT/HCPCS: 36415; 82607

== ENCOUNTER 2018-07-21 10:00 | Outpatient (RCR) | payer MEDICARE, SELFPAY | END 2018-07-21 23:59 | LOC: DC 10:00 | PROVIDERS: Family Provider Family Medicine; PCP Family Medicine; Visit Provider Family Medicine | DX: E13.9 Other specified diabetes mellitus without complications (principal); Z71.3 Dietary counseling and surveillance | CPT/HCPCS: 97802; G0108 ==

== ENCOUNTER → 2018-08-06 10:27 | Outpatient (CLI) | payer MEDICARE, SELFPAY ==
[2018-08-06 12:06] LABS: Absolute Lymphocyte Count 1.33 X10^3/ul (0.83-4.51); Absolute Neutrophil Count 5.8 X10^3/uL (2.0-7.7); Basophil# 0.02 X10^3/uL; Basophil% 0.3 % (0-1); Eosinophil# 0.14 X10^3/uL; Eosinophils% 1.8 % (0-5); Hematocrit 39.7 % (37-47); Hemoglobin 12.6 g/dl (12.0-15.0); Lymphocyte # 1.33 X10^3/ul (4.0); Lymphocyte % 17.1 % (19-41); Mean Corp Hgb Conc 31.7 g/gl (32-36); Mean Corpuscular Hgb 26.5 pg (27.0-32.0); Mean Corpuscular Volume 83.4 fL (81-99); Monocyte# 0.43 X10^3/uL; Monocyte% 5.5 % (0-10); Neutrophil # 5.81 X10^3/uL (2.7-7.7); Neutrophil % 74.9 % (47-70); Platelet Count 174 K/mm3 (150-450); RBC Distribution Width CV 15.4 % (11.6-14.6); Red Blood Count 4.76 M/mm3 (4.2-5.4); White Blood Count 7.8 K/mm3 (4.4-11.0)
[2018-08-06 12:07] LABS: POSITIVE COUNT NO; POSITIVE DIFFERENTIAL NO; POSITIVE MORPHOLOGY NO
[2018-08-06 12:38] LABS: Hemoglobin A1c 8.5 % (4.2-6.3)
[2018-08-06 12:43] LABS: PTHIN 115.9 pg/mL (18.4-80.1); Vitamin D,25 Hydroxy 61.7 ng/mL (29.95-100.01)
[2018-08-06 12:46] LABS: Microalbumin:Creatinine Ratio 781.6 mg/g CRE (<30 mg/g CRE); Protein, Urine (Random) 102.8 mg/dL (<11.9); Protein:Creat Ratio 998 mg/g CRE (0-200)
[2018-08-06 12:49] LABS: ALB/GLOB Ratio 0.8 RATIO (0.9-2.4); AST(SGOT) 8 U/L (15-37); Alanine Aminotransfer ALT/SGPT 18 U/L (13-56); Alkaline Phosphatase 147 U/L (45-117); Anion Gap 7 (5-15); BUN 18 mg/dL (7-18); BUN/Creat Ratio 16.1 RATIO (10-20); Calcium,Total 9.9 mg/dL (8.5-10.1); Chloride 105 mmol/L (98-107); Cholesterol 103 mg/dL (200); Creatinine, Serum 1.12 mg/dL (0.55-1.02); EST Glomerular Filtration Rate 51 mL/min (>60); Est Glom Filt Rate - Afr Amer 62 mL/min (>60); Globulin 3.8 g/dL (2.2-4.2); Glucose 292 mg/dL (74-106); High Density Lipoprotein 45 mg/dL; Protein, Total 6.8 g/dL (6.4-8.2); Sodium Level 140 mmol/L (136-145); Triglycerides 116 mg/dL
[2018-08-06 12:50] LABS: Very Low Density Lipoprotein 23 mg/dL (5-40)
== END ==
PROVIDERS: Family Provider Family Medicine; PCP Family Medicine; Referring Provider Family Medicine; Visit Provider Family Medicine
DX: E13.9 Other specified diabetes mellitus without complications (principal); E55.9 Vitamin D deficiency, unspecified; E78.5 Hyperlipidemia, unspecified; N18.3 Chronic kidney disease, stage 3 (moderate); I12.9 Hypertensive chronic kidney disease with stage 1 through stage 4 chronic kidney disease, or unspecified chronic kidney disease
CPT/HCPCS: 36415; 80053; 80061; 82043; 82306; 82570; 83036; 83970; 84156; 85025

== ENCOUNTER 2018-10-22 18:07 | Emergency (ER) | payer MEDICARE, SELFPAY ==
[2018-10-22 18:07] VITALS: BP 132/57; PULSE 70; RESP 16; TEMP 36.8; O2SAT 94; BMI 79.0
[2018-10-22 18:10] VITALS: O2SAT 93
--- NOTE | 2018-10-22 18:24 | RAD_ITS ---
STUDY: X-RAY - RIGHT KNEE REASON FOR EXAM: Female, 68 years old. Fall TECHNIQUE: 4 view(s) of the knee. COMPARISON: None. FINDINGS: Normal visualized distal femur. Normal visualized proximal tibia and fibula. Normal proximal tibiofibular articulation. Degenerative spurring and narrowing at the medial femorotibial compartment. Degenerative spurring of the lateral femorotibial compartment. Degenerative spurring and narrowing at the patellofemoral articulation. There is pretibial and infrapatellar subcutaneous edema. Chondrocalcinosis of the menisci. RAD/Knee 4 or More Views IMPRESSION: Degenerative changes of the knee. Chondrocalcinosis of the menisci. Electronically Signed: Zachary Nava DO at 20:13 EDT Tel [phone], Service support ,
--- NOTE | 2018-10-22 18:24 | CT_ITS ---
STUDY: CT BRAIN WITHOUT CONTRAST REASON FOR EXAM: Female, 68 years old. Fall RADIATION DOSAGE (If Supplied By Facility): CTDIvol = ( 44.99 ) mGy, DLP = ( 762.36 ) mGycm TECHNIQUE: Transaxial CT imaging of the brain was performed without administration of intravenous contrast material. Individualized dose optimization techniques were used for this CT. COMPARISON: May 25, 2016 FINDINGS: Mild right posterior parietal scalp edema. Normal calvarium. Normal size ventricles and extra-axial spaces for the patient's age. Mild white matter microangiopathic ischemic changes of the cerebral hemispheres. Normal basal ganglia. 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 Normal brainstem. Normal cerebellum. There is no intracranial hemorrhage. There are no findings of an acute ischemic infarction. Normal visualized paranasal sinuses. CT/Brain/Head without Contrast IMPRESSION: Age-related and chronic changes of the brain. Electronically Signed: Zachary Nava DO at 19:24 EDT Tel [phone], Service support ,
--- NOTE | 2018-10-22 18:24 | CT_ITS ---
STUDY: CT CERVICAL SPINE WITHOUT CONTRAST REASON FOR EXAM: Female, 68 years old. Fall RADIATION DOSAGE (If Supplied By Facility): CTDIvol = ( 36.47 ) mGy, DLP = ( 771.80 ) mGycm TECHNIQUE: High resolution transaxial imaging was performed without contrast material. Sagittal and coronal images were reconstructed. Individualized dose optimization techniques were used for this CT. COMPARISON: None FINDINGS: Normal craniovertebral junction. Normal anterior atlantoaxial articulation. Normal odontoid process. Mildly reversed cervical lordosis. Normal vertebral bodies and posterior osseous elements. There is an epidural calcification posteriorly at the T4 level. C2-3: Normal endplates. Normal disc height and morphology. Normal central canal. Facet hypertrophy slightly narrowing the left intervertebral neural foramen. C3-4: Normal endplates. Normal disc height and morphology. Normal central canal and intervertebral neuroforamina. C4-5: Spurring at the endplates. Normal disc height and morphology. Normal central canal and intervertebral neuroforamina. C5-6: Spurring at the endplates. Normal disc height and morphology. Normal central canal. Uncovertebral spurring slightly protruding into the intervertebral neuroforamina. C6-7: Normal endplates. Normal disc height and morphology. Normal central canal. Facet hypertrophy slightly narrowing the right intervertebral neural foramen. C7-T1: Normal endplates. Normal disc height and morphology. Normal central canal. Facet hypertrophy slightly narrowing the intervertebral neuroforamina. Normal visualized soft tissue structures. Left upper lobe 9 mm nodule is noted. CT/Spine Cervical without Contras IMPRESSION: Mild degenerative changes of the cervical spine. Electronically Signed: Zachary Nava DO at 19:52 EDT Tel [phone], Service support ,
--- NOTE | 2018-10-22 18:24 | RAD_ITS ---
STUDY: X-RAY - PELVIS AND LEFT HIP REASON FOR EXAM: Female, 68 years old. Fall TECHNIQUE: 3 views of the pelvis and hip. COMPARISON: None. FINDINGS: There is a non-specific bowel gas pattern. Normal visualized soft tissue structures. Surgical clips over the right inguinal region. Normal bilateral iliac wings, sacroiliac joints and visualized sacrum. Normal bilateral superior and inferior pubic rami. Normal pubic symphysis. Normal bilateral ischial tuberosities. Normal visualized femoral head. Normal acetabulum. Normal hip joint. RAD/HIP, UNI W/ Pelvis 2-3 Views IMPRESSION: Normal x-ray examination of the pelvis and hip. Electronically Signed: Zachary Nava DO at 20:10 EDT Tel [phone], Service support ,
--- NOTE | 2018-10-22 18:27 | ED.DCSUM_ITS ---
- ER Visit Summary Date of Service: 10/22/18 Chief Complaint: Fall History of Present Illness: The patient is a 68 F presenting after fall. Patient states she lost her balance reaching for her walker and fell down 4 steps. She did hit her head but denies loss of consciousness. She is on Plavix. She complains of bilateral knee and left hip pain. She denies other complaints. Physical Examination: Vitals are stable. Patient is afebrile. Alert no acute distress. HEENT exam posterior scalp hematoma Neck is mild diffuse tenderness with no step-off Lungs are clear and equal bilaterally. Heart is regular rate and rhythm. Abdomen is soft obese nontender Extremities left anterior knee abrasion with painful range of motion. Right knee active full range of motion. Neurovascular intact distally Skin is warm and dry. No focal neurologic deficit. Remainder of exam is unremarkable. Emergency Department Course and Treatment: Patient is allergic to tetanus immunization. Patient was given OxyIR. CT head shows chronic changes. CT C-s pine shows mild degenerative changes of the cervical spine. Left knee x-ray shows total replacement of the knee. No acute bony injury. Right knee xray shows Degenerative changes of the knee. Chondrocalcinosis of the menisci. Left hip xray shows normal x-ray examination of the pelvis and hip. Patient is able to ambulate in the ED with a walker at her baseline. She is given a prescription for short course of [place]. Advised to follow-up with her primary care physician. Advised return to ED for worsening complaints. Disposition: Discharge home Impression: Status post mechanical fall, bilateral knee contusion, closed head injury This note was generated with [employer] dictation software. It may contain incorrect words, spelling, and punctuation that were not noted in review of the chart prior to signing ED Disposition - Plan for ED Patient: Instructions: FALL, Mechanical Prescriptions: Hydrocodone Bitart/Apap 5-325 [[place] 5MG-325MG] 1 tab PO Q6H PRN PRN 3 Days #10 tab PRN Reason: Pain Prescription Printed Referrals: Declan Mauricio MD [Primary Care Provider] -
[2018-10-22] MEDS: oxyCODONE 5 MG Tablet PO (18:42)
--- NOTE | 2018-10-22 18:49 | RAD_ITS ---
STUDY: X-RAY - LEFT KNEE REASON FOR EXAM: Female, 68 years old. Fall TECHNIQUE: 4 view(s) of the knee. COMPARISON: None. 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 The hardware components are well aligned. The soft tissue structures are unremarkable. RAD/Knee 4 or More Views IMPRESSION: Total replacement of the knee. No acute bony injury. Electronically Signed: Zachary Nava DO at 20:11 EDT Tel [phone], Service support ,
--- NOTE | 2018-10-22 20:53 | ED.DEP ---
ED Disposition - Plan for ED Patient: Instructions: FALL, Mechanical Prescriptions: Hydrocodone Bitart/Apap 5-325 [[place] 5MG-325MG] 1 tablet PO Q6H PRN PRN 3 Days #10 tablet PRN Reason: Pain Referrals: Declan Mauricio MD [Primary Care Provider] -
[2018-10-22 21:12] VITALS: BP 130/60; PULSE 78; RESP 18
== END 2018-10-22 21:12 | disposition home or self-care (01) ==
PROVIDERS: Emergency Provider Emergency Medicine; Family Provider Family Medicine; PCP Family Medicine
DX: S09.90XA Unspecified injury of head, initial encounter (principal); S80.01XA Contusion of right knee, initial encounter; S80.02XA Contusion of left knee, initial encounter; W10.9XXA Fall (on) (from) unspecified stairs and steps, initial encounter; M11.261 Other chondrocalcinosis, right knee; E11.9 Type 2 diabetes mellitus without complications; I10 Essential (primary) hypertension; E78.00 Pure hypercholesterolemia, unspecified; Z86.73 Personal history of transient ischemic attack (TIA), and cerebral infarction without residual deficits; Z86.718 Personal history of other venous thrombosis and embolism; Z86.711 Personal history of pulmonary embolism
CPT/HCPCS: 70450; 72125; 73502; 73564; 99284

== ENCOUNTER → 2018-11-18 09:51 | Outpatient (CLI) | payer MEDICARE, SELFPAY ==
[2018-10-22 18:07] VITALS: BMI 79.0
[2018-11-18 09:56] LABS: Mucous, Urine 0 SEEN /hpf (<or=2+)
[2018-11-18 12:25] LABS: Absolute Lymphocyte Count 1.52 X10^3/uL (0.83-4.51); Absolute Neutrophil Count 5.9 X10^3/uL (2.0-7.7); Basophil# 0.04 X10^3/uL; Basophil% 0.5 % (0-1); Eosinophil# 0.19 X10^3/uL; Eosinophils% 2.3 % (0-5); Hematocrit 38.3 % (37-47); Hemoglobin 12.1 g/dL (12.0-15.0); Lymphocyte # 1.52 X10^3/ul (4.0); Lymphocyte % 18.5 % (19-41); Mean Corp Hgb Conc 31.6 g/dL (32-36); Mean Corpuscular Hgb 26.8 pg (27.0-32.0); Mean Corpuscular Volume 84.7 fL (81-99); Mean Platelet Vol. 10.9 fl (6.2-12.0); Monocyte# 0.51 X10^3/uL; Monocyte% 6.2 % (0-10); NRBC Flagged by Analyzer 0 % (0-5); Neutrophil % 71.6 % (47-70); Platelet Count 177 K/mm3 (150-450); RBC Distribution Width CV 15.7 % (11.6-14.6); RBC Distribution Width SD 47.6 fl (35.1-43.9); Red Blood Count 4.52 M/mm3 (4.2-5.4); White Blood Count 8.2 K/mm3 (4.4-11.0)
[2018-11-18 12:46] LABS: ALB/GLOB Ratio 0.8 RATIO (0.9-2.4); AST(SGOT) 11 U/L (15-37); Alanine Aminotransfer ALT/SGPT 22 U/L (13-56); Albumin, Serum 2.9 g/dL (3.2-5.0); Alkaline Phosphatase 150 U/L (45-117); Anion Gap 5 (5-15); BUN 20 mg/dL (7-18); BUN/Creat Ratio 17.2 RATIO (10-20); Calcium,Total 9.5 mg/dL (8.5-10.1); Chloride 107 mmol/L (98-107); Cholesterol 117 mg/dL (200); Creatinine, Serum 1.16 mg/dL (0.55-1.02); EST Glomerular Filtration Rate 49 mL/min (>60); Est Glom Filt Rate - Afr Amer 59 mL/min (>60); Globulin 3.7 g/dL (2.2-4.2); Glucose 230 mg/dL (74-106); High Density Lipoprotein 51 mg/dL; Potassium 4.1 mmol/L (3.5-5.1); Protein, Total 6.6 g/dL (6.4-8.2); Sodium Level 140 mmol/L (136-145); Triglycerides 110 mg/dL; Very Low Density Lipoprotein 22 mg/dL (5-40)
[2018-11-18 12:54] LABS: Color, Urine Yellow (Yellow); Glucose, Dipstick Normal (Normal); Ketone-Dipstick 5 mg/dl (Negative); Leukocyte Esterase-Dipstick 25 /ul (Negative); Nitrite-Dipstick Negative (Negative); Occult Blood-Urine 10 /ul (Negative); Protein-Dipstick 100 mg/dl (Negative); Specific Gravity, Urine 1.025 (1.002-1.030); Urine Bilirubin Dipstick Negative (Negative); Urine Clarity Sl. Cloudy (Clear); Urine Urobilinogen Normal (Normal)
[2018-11-18 12:57] LABS: Hemoglobin A1c 8.2 % (4.2-6.3)
[2018-11-18 13:05] LABS: PTHIN 117.7 pg/mL (18.4-80.1)
[2018-11-18 13:15] LABS: Bacteria 1+ /hpf (None Seen); Red Blood Cells-Urine 0-5 SEEN /hpf (0-5); Squamous Epithelial Cells - UA 10-25 SEEN /hpf (5-10); White Blood Cells 0-5 SEEN /hpf (0-5)
[2018-11-18 13:42] LABS: Microalbumin:Creatinine Ratio 558.5 mg/g CRE (<30 mg/g CRE); Protein, Urine (Random) 192.7 mg/dL (<11.9); Protein:Creat Ratio 727 mg/g CRE (0-200)
== END ==
PROVIDERS: Family Provider Family Medicine; PCP Family Medicine; Referring Provider Family Medicine; Visit Provider Family Medicine
DX: I12.0 Hypertensive chronic kidney disease with stage 5 chronic kidney disease or end stage renal disease (principal); E11.22 Type 2 diabetes mellitus with diabetic chronic kidney disease; N18.3 Chronic kidney disease, stage 3 (moderate); E78.5 Hyperlipidemia, unspecified; E55.9 Vitamin D deficiency, unspecified
CPT/HCPCS: 36415; 80053; 80061; 81001; 82043; 82306; 82570; 83036; 83970; 84156; 85025

== ENCOUNTER → 2019-01-28 20:14 | Outpatient (CLI) | payer MEDICARE, SELFPAY ==
[2018-12-30 06:02] VITALS: BMI 78.3
== END ==
LOC: SL 20:16
PROVIDERS: Family Provider Family Medicine; PCP Family Medicine; Visit Provider Internal Medicine Critical Care Medicine
DX: G47.33 Obstructive sleep apnea (adult) (pediatric) (principal); I63.9 Cerebral infarction, unspecified
CPT/HCPCS: 95811

== ENCOUNTER → 2019-02-09 11:56 | Outpatient (CLI) | payer MEDICARE, SELFPAY ==
[2019-02-09 07:37] VITALS: BMI 78.3
[2019-02-09 12:51] LABS: Absolute Lymphocyte Count 1.65 X10^3/uL (0.83-4.51); Absolute Neutrophil Count 6.6 X10^3/uL (2.0-7.7); Basophil# 0.04 X10^3/uL; Basophil% 0.4 % (0-1); Eosinophil# 0.17 X10^3/uL; Eosinophils% 1.9 % (0-5); Hematocrit 40.3 % (37-47); Hemoglobin 12.6 g/dL (12.0-15.0); Lymphocyte # 1.65 X10^3/ul (4.0); Lymphocyte % 18.2 % (19-41); Mean Corp Hgb Conc 31.3 g/dL (32-36); Mean Corpuscular Hgb 26.6 pg (27.0-32.0); Mean Corpuscular Volume 85.2 fL (81-99); Mean Platelet Vol. 11.3 fl (6.2-12.0); Monocyte# 0.59 X10^3/uL; Monocyte% 6.5 % (0-10); NRBC Flagged by Analyzer 0 % (0-5); Neutrophil % 72.6 % (47-70); Platelet Count 168 K/mm3 (150-450); RBC Distribution Width CV 15.5 % (11.6-14.6); RBC Distribution Width SD 47.8 fl (35.1-43.9); Red Blood Count 4.73 M/mm3 (4.2-5.4); White Blood Count 9.1 K/mm3 (4.4-11.0)
[2019-02-09 13:12] LABS: Hemoglobin A1c 7.6 % (4.2-6.3)
[2019-02-09 13:14] LABS: ALB/GLOB Ratio 0.8 RATIO (0.9-2.4); AST(SGOT) 9 U/L (15-37); Alanine Aminotransfer ALT/SGPT 16 U/L (13-56); Albumin, Serum 3.1 g/dL (3.2-5.0); Alkaline Phosphatase 143 U/L (45-117); Anion Gap 7 (5-15); BUN 21 mg/dL (7-18); BUN/Creat Ratio 19.1 RATIO (10-20); Calcium,Total 9.7 mg/dL (8.5-10.1); Chloride 104 mmol/L (98-107); Cholesterol 117 mg/dL (200); EST Glomerular Filtration Rate 52 mL/min (>60); Est Glom Filt Rate - Afr Amer 63 mL/min (>60); Globulin 3.9 g/dL (2.2-4.2); Glucose 205 mg/dL (74-106); High Density Lipoprotein 51 mg/dL; Potassium 4.2 mmol/L (3.5-5.1); Sodium Level 139 mmol/L (136-145); Triglycerides 80 mg/dL; Very Low Density Lipoprotein 16 mg/dL (5-40)
[2019-02-09 13:19] LABS: PTHIN 145.6 pg/mL (18.4-80.1)
== END ==
LOC: LAB 11:57
PROVIDERS: Family Provider Family Medicine; PCP Family Medicine; Referring Provider Family Medicine; Visit Provider Family Medicine
DX: E13.9 Other specified diabetes mellitus without complications (principal); E78.5 Hyperlipidemia, unspecified; D35.1 Benign neoplasm of parathyroid gland
CPT/HCPCS: 36415; 80053; 80061; 83036; 83970; 85025

== ENCOUNTER → 2019-03-19 12:00 | Outpatient (CLI) | payer MEDICARE, SELFPAY ==
[2019-02-09 07:37] VITALS: BMI 78.3
--- NOTE | 2019-03-19 12:05 | RAD_ITS ---
STUDY: X-RAY - RIGHT FOOT CLINICAL: Female, 69 years old. patient complains of right foot pain after stepping on her dog''s toy two weeks ago TECHNIQUE: 3 view(s) of the foot. COMPARISON: None. FINDINGS: Plantar calcaneal spur with minimal enthesophyte at the Achilles tendon insertion site. Calcifications in the plantar fascia. Otherwise normal talus , calcaneus, and tarsal bones. Normal visualized subtalar, talonavicular, calcaneocuboid and tarsal joints. There is mild degenerative arthrosis of the tarsometatarsal articulations. Normal metatarsi. There is degenerative arthrosis of the metatarsophalangeal joint of the hallux . Normal tibial and fibular sesamoid bones. Normal interphalangeal joint of the great toe. Normal phalanges of the great toe. Normal second through fifth metatarsophalangeal joints. Multilevel narrowing of the interphalangeal joints otherwise normal phalanges of the lesser toes. The soft tissue structures are unremarkable. There is no demonstrated fracture. RAD/Foot min 3 Views IMPRESSION: Underlying degenerative disease as described above. Electronically Signed: Laurie Colón MD at 1:17 EST , Service support ,
== END ==
PROVIDERS: Family Provider Family Medicine; PCP Family Medicine; Referring Provider Family Medicine; Visit Provider Family Medicine
DX: S99.921A Unspecified injury of right foot, initial encounter (principal)
CPT/HCPCS: 73630

== ENCOUNTER → 2019-05-28 | Outpatient (CLI) | payer MEDICARE, SELFPAY ==
[2019-02-09 07:37] VITALS: BMI 78.3
[2019-05-28 17:19] LABS: Absolute Lymphocyte Count 1.29 X10^3/uL (0.83-4.51); Absolute Neutrophil Count 8.2 X10^3/uL (2.0-7.7); Basophil# 0.06 X10^3/uL; Basophil% 0.6 % (0-1); Eosinophil# 0.22 X10^3/uL; Eosinophils% 2.1 % (0-5); Hematocrit 41.1 % (37-47); Hemoglobin 12.7 g/dL (12.0-15.0); Lymphocyte # 1.29 X10^3/ul (4.0); Lymphocyte % 12.5 % (19-41); Mean Corp Hgb Conc 30.9 g/dL (32-36); Mean Platelet Vol. 10.9 fl (6.2-12.0); Monocyte# 0.54 X10^3/uL; Monocyte% 5.2 % (0-10); NRBC Flagged by Analyzer 0 % (0-5); Neutrophil # 8.15 X10^3/uL (2.7-7.7); Neutrophil % 78.8 % (47-70); Platelet Count 193 K/mm3 (150-450); RBC Distribution Width CV 15.2 % (11.6-14.6); RBC Distribution Width SD 46.5 fl (35.1-43.9); Red Blood Count 4.89 M/mm3 (4.2-5.4); White Blood Count 10.3 K/mm3 (4.4-11.0)
[2019-05-28 17:36] LABS: ALB/GLOB Ratio 0.9 RATIO (0.9-2.4); AST(SGOT) 8 U/L (15-37); Alanine Aminotransfer ALT/SGPT 14 U/L (13-56); Albumin, Serum 3.1 g/dL (3.2-5.0); Alkaline Phosphatase 161 U/L (45-117); Anion Gap 5 (5-15); BUN 17 mg/dL (7-18); BUN/Creat Ratio 15.2 RATIO (10-20); Calcium,Total 9.5 mg/dL (8.5-10.1); Chloride 102 mmol/L (98-107); Creatinine, Serum 1.12 mg/dL (0.55-1.02); EST Glomerular Filtration Rate 51 mL/min (>60); Est Glom Filt Rate - Afr Amer 62 mL/min (>60); Globulin 3.5 g/dL (2.2-4.2); Glucose 245 mg/dL (74-106); Potassium 4.6 mmol/L (3.5-5.1); Protein, Total 6.6 g/dL (6.4-8.2); Sodium Level 137 mmol/L (136-145)
[2019-05-28 17:37] LABS: Protein, Urine (Random) 147.2 mg/dL (<11.9); Protein:Creat Ratio 903 mg/g CRE (0-200)
[2019-05-28 17:39] LABS: Hemoglobin A1c 7.8 % (4.2-6.3)
[2019-05-28 18:39] LABS: Vitamin D,25 Hydroxy 64.6 ng/mL
== END | disposition home or self-care (01) ==
LOC: MFPLAB 16:14
PROVIDERS: PCP Family Medicine; Referring Provider Family Medicine; Visit Provider Family Medicine
DX: I12.9 Hypertensive chronic kidney disease with stage 1 through stage 4 chronic kidney disease, or unspecified chronic kidney disease (principal); N18.3 Chronic kidney disease, stage 3 (moderate); E13.9 Other specified diabetes mellitus without complications
CPT/HCPCS: 36415; 80053; 82306; 82570; 83036; 84156; 85025

== ENCOUNTER → 2019-09-28 | Outpatient (CLI) | payer MEDICARE, SELFPAY ==
[2019-02-09 07:37] VITALS: BMI 78.3
--- NOTE | 2019-09-28 13:46 | RAD_ITS ---
STUDY: X-RAY - LEFT WRIST REASON FOR EXAM: Female, 69 years old. Left wrist pain. No injury. TECHNIQUE: 3 view(s) of the wrist were obtained. COMPARISON: None. FINDINGS: No visible fracture. No osseous destruction. Alignment anatomic. Chondrocalcinosis of the TFC. Moderate osteoarthritis first CMC joint. Otherwise mild degenerative changes. Soft tissues unremarkable. RAD/Wrist min 3 Views IMPRESSION: No acute osseous abnormality. Chondrocalcinosis of the TFC. Moderate osteoarthritis first CMC joint. Otherwise mild degenerative changes. Electronically Signed: Shemar Ingram, at 22:42 EDT Tel , Service support ,
[2019-09-28 15:20] LABS: Absolute Lymphocyte Count 1.59 X10^3/uL (0.83-4.51); Absolute Neutrophil Count 8.4 X10^3/uL (2.0-7.7); Basophil# 0.05 X10^3/uL; Basophil% 0.5 % (0-1); Eosinophil# 0.19 X10^3/uL; Eosinophils% 1.7 % (0-5); Hematocrit 39.8 % (37-47); Hemoglobin 12.1 g/dL (12.0-15.0); Lymphocyte # 1.59 X10^3/ul (4.0); Lymphocyte % 14.6 % (19-41); Mean Corp Hgb Conc 30.4 g/dL (32-36); Mean Corpuscular Hgb 25.9 pg (27.0-32.0); Monocyte# 0.62 X10^3/uL; Monocyte% 5.7 % (0-10); NRBC Flagged by Analyzer 0 % (0-5); Neutrophil # 8.39 X10^3/uL (2.7-7.7); Platelet Count 223 K/mm3 (150-450); RBC Distribution Width CV 15.7 % (11.6-14.6); RBC Distribution Width SD 47.7 fl (35.1-43.9); Red Blood Count 4.68 M/mm3 (4.2-5.4); White Blood Count 10.9 K/mm3 (4.4-11.0)
[2019-09-28 15:36] LABS: Hemoglobin A1c 7.7 % (3.8-5.6)
[2019-09-28 15:46] LABS: Vitamin D,25 Hydroxy 62.3 ng/mL
[2019-09-28 15:46] LABS: Uric Acid 5.7 mg/dL (2.6-6.0)
[2019-09-28 15:49] LABS: ALB/GLOB Ratio 0.7 RATIO (0.9-2.4); AST(SGOT) 9 U/L (15-37); Alanine Aminotransfer ALT/SGPT 15 U/L (13-56); Albumin, Serum 2.9 g/dL (3.2-5.0); Alkaline Phosphatase 138 U/L (45-117); Anion Gap 8 (5-15); BUN 13 mg/dL (7-18); BUN/Creat Ratio 11.8 RATIO (10-20); Calcium,Total 9.6 mg/dL (8.5-10.1); Chloride 106 mmol/L (98-107); Cholesterol 107 mg/dL (200); EST Glomerular Filtration Rate 52 mL/min (>60); Est Glom Filt Rate - Afr Amer 63 mL/min (>60); Globulin 4.3 g/dL (2.2-4.2); Glucose 151 mg/dL (74-106); High Density Lipoprotein 51 mg/dL; Potassium 3.6 mmol/L (3.5-5.1); Protein, Total 7.2 g/dL (6.4-8.2); Sodium Level 141 mmol/L (136-145); Triglycerides 116 mg/dL; Very Low Density Lipoprotein 23 mg/dL (5-40)
[2019-09-28 18:46] LABS: Microalbumin:Creatinine Ratio 552.2 mg/g CRE (<30 mg/g CRE); Protein, Urine (Random) 191.6 mg/dL (<11.9); Protein:Creat Ratio 833 mg/g CRE (0-200)
== END | disposition home or self-care (01) ==
PROVIDERS: PCP Family Medicine; Referring Provider Family Medicine; Visit Provider Family Medicine
DX: M25.532 Pain in left wrist (principal); E55.9 Vitamin D deficiency, unspecified; I10 Essential (primary) hypertension; E13.9 Other specified diabetes mellitus without complications; E78.5 Hyperlipidemia, unspecified
CPT/HCPCS: 36415; 73110; 80053; 80061; 82043; 82306; 82570; 83036; 84156; 84550; 85025

== ENCOUNTER → 2020-02-21 12:14 | Outpatient (CLI) | payer MEDICARE, SELFPAY ==
[2019-02-09 07:37] VITALS: BMI 78.3
[2020-02-21 15:12] LABS: Absolute Lymphocyte Count 1.21 X10^3/uL (0.83-4.51); Absolute Neutrophil Count 6.3 X10^3/uL (2.0-7.7); Basophil# 0.05 X10^3/uL; Basophil% 0.6 % (0-1); Eosinophils% 2.4 % (0-5); Hematocrit 42.8 % (37-47); Hemoglobin 12.9 g/dL (12.0-15.0); Lymphocyte # 1.21 X10^3/ul (4.0); Lymphocyte % 14.6 % (19-41); Mean Corp Hgb Conc 30.1 g/dL (32-36); Mean Corpuscular Hgb 26.1 pg (27.0-32.0); Mean Corpuscular Volume 86.5 fL (81-99); Mean Platelet Vol. 10.9 fl (6.2-12.0); NRBC Flagged by Analyzer 0 % (0-5); Neutrophil # 6.27 X10^3/uL (2.7-7.7); Neutrophil % 75.9 % (47-70); Platelet Count 205 K/mm3 (150-450); RBC Distribution Width CV 15.6 % (11.6-14.6); RBC Distribution Width SD 48.8 fl (35.1-43.9); Red Blood Count 4.95 M/mm3 (4.2-5.4); White Blood Count 8.3 K/mm3 (4.4-11.0)
[2020-02-21 15:26] LABS: Vitamin D,25 Hydroxy 74.4 ng/mL
[2020-02-21 15:34] LABS: PTHIN 171.4 pg/mL (18.4-80.1)
[2020-02-21 15:44] LABS: Protein, Urine (Random) 237.9 mg/dL (<11.9); Protein:Creat Ratio 760 mg/g CRE (0-200)
[2020-02-21 15:48] LABS: ALB/GLOB Ratio 0.8 RATIO (0.9-2.4); AST(SGOT) 11 U/L (15-37); Alanine Aminotransfer ALT/SGPT 18 U/L (13-56); Albumin, Serum 3.1 g/dL (3.2-5.0); Alkaline Phosphatase 148 U/L (45-117); Anion Gap 7 (5-15); BUN 19 mg/dL (7-18); BUN/Creat Ratio 15.8 RATIO (10-20); Calcium,Total 9.8 mg/dL (8.5-10.1); Chloride 109 mmol/L (98-107); Cholesterol 111 mg/dL (200); EST Glomerular Filtration Rate 47 mL/min (>60); Est Glom Filt Rate - Afr Amer 57 mL/min (>60); Globulin 3.9 g/dL (2.2-4.2); Glucose 153 mg/dL (74-106); High Density Lipoprotein 49 mg/dL; Potassium 3.5 mmol/L (3.5-5.1); Sodium Level 141 mmol/L (136-145); Triglycerides 123 mg/dL; Very Low Density Lipoprotein 25 mg/dL (5-40)
[2020-02-21 16:10] LABS: Hemoglobin A1c 7.1 % (3.8-5.6)
== END ==
PROVIDERS: PCP Family Medicine; Referring Provider Family Medicine; Visit Provider Family Medicine
DX: E13.9 Other specified diabetes mellitus without complications (principal); E78.5 Hyperlipidemia, unspecified; E55.9 Vitamin D deficiency, unspecified; I10 Essential (primary) hypertension; D35.1 Benign neoplasm of parathyroid gland
CPT/HCPCS: 36415; 80053; 80061; 82306; 82570; 83036; 83970; 84156; 85025

== ENCOUNTER 2020-04-30 19:18 | Emergency (ER) | payer MEDICARE, SELFPAY ==
[2019-02-09 07:37] VITALS: BMI 78.3
[2020-04-30 19:20] VITALS: BP 186/66; PULSE 68; RESP 18; TEMP 36.6; O2SAT 98; BMI 58.7
--- NOTE | 2020-04-30 19:26 | ED.DCSUM_ITS ---
- ER Visit Summary Date of Service: 04/30/20 Chief Complaint: [] History of Present Illness: The patient is a 70 F [] Physical Examination: [] Test Results: [] Emergency Department Course and Treatment: [] Treatment Plan: [] Disposition: [] Impression: [] This note was generated with [employer] dictation software. It may contain incorrect words, spelling, and punctuation that were not noted in review of the chart prior to signing ED Disposition - Plan for ED Patient: Referrals: Declan Mauricio MD [Primary Care Provider] -
[2020-04-30] MEDS: Mixture 30 ML Bottle 10 ML TOPICAL (20:01)
--- NOTE | 2020-04-30 20:07 | ED.VIS.GEN ---
History of Present Illness Chief Complaint: Nosebleed Informant: Patient Narrative: 70-year-old female presenting with epistaxis. She is on Plavix. She denies any trauma. She states her last bloody nose was distantly. She states this started about an hour and a half ago and after she started clamping her nose she noticed that it started coming out of the left nare. She does believe it started in the right nare. She denies dizziness, shortness of breath. She denies lightheadedness. - Past Medical History (1) CVA (cerebral vascular accident) Status: Chronic (2) Depression Status: Chronic (3) GERD (gastroesophageal reflux disease) Status: Chronic (4) Hypertension associated with diabetes Status: Chronic (5) Obstructive sleep apnea Status: Chronic Past Medical History - Allergies and Home Meds Allergies/Adverse Reactions: Allergies cefaclor [From Ceclor] Allergy (Verified 04/30/20 19:20) Unknown celecoxib [From Celebrex] Allergy (Verified 04/30/20 19:20) Unknown cephalexin monohydrate [From Keflex] Allergy (Verified 04/30/20 19:20) Anaphylaxis clindamycin Allergy (Verified 04/30/20 19:20) Shortness of breath IRREGULAR HEART BEAT glyburide,micronized [From Glynase] Allergy (Verified 04/30/20 19:20) Unknown Sulfa (Sulfonamide Antibiotics) Allergy (Verified 04/30/20 19:20) Rash Tetanus Vaccines and Toxoid [Tetanus Vaccines & Toxoid] Allergy (Verified 04/30/20 19:20) Anaphylaxis ROEL Inhibitors Adverse Reaction (Verified 04/30/20 19:20) Other coughing [id number] [From Beano] Adverse Reaction (Verified 04/30/20 19:20) Other MASSIVE BLOATING AND GAS amlodipine besylate [From Norvasc] Adverse Reaction (Verified 04/30/20 19:20) Other WHEN TAKES BEANO AND NORVASC - SEVERE BELCHING cyclobenzaprine HCl [From Flexeril] Adverse Reaction (Verified 04/30/20 19:20) Other SLEPT FOR 22 HOURS lovastatin Adverse Reaction (Verified 04/30/20 19:20) Nausea terfenadine [From Seldane] Adverse Reaction (Verified 04/30/20 19:20) Unknown theophylline Adverse Reaction (Verified 04/30/20 19:20) Unknown ENVIROMENTAL ALLERGIES Allergy (Uncoded 04/30/20 19:20) Unknown CATS, CEDAR, DUST MITES, FEATHERS, FRANGRANCES, MILDEW, MOLD, SMOKE BEANO W/ NORVASC Adverse Reaction (Uncoded 04/30/20 19:20) Other Primary Care Physician: Declan Mauricio MD [Primary Care Provider] - Prior records reviewed: Yes Past Medical History: - - Reviewed in problem list Surgical History: hysterectomy, total knee arthroplasty, tonsillectomy Lives: Alone Smoking Status: Former smoker Alcohol: None Drugs: None - Family History Maternal Family History: Family History (Last Reviewed 02/09/19 @ 11:22 by Digna Ivan ACCOUNTING MANAGER ASSISTANT CONTROLLER, ACCOUNTING MANAGER ASSISTANT CONTROLLER-C) Mother Dementia Family History: Reports: No pertinent history Paternal Family History: Family History (Last Reviewed 02/09/19 @ 11:22 by Digna Ivan ACCOUNTING MANAGER ASSISTANT CONTROLLER, ACCOUNTING MANAGER ASSISTANT CONTROLLER-C) Mother Dementia Family History: Reports: No pertinent history - age 60's Review of Systems General: Denies: Chills, Fever, Sweats Eyes: Denies: Visual changes - bilaterally, Diplopia ENT: Reports: - - Epistaxis. Denies: Rhinorrhea, Sore throat Cardiovascular: Denies: Chest pain, Palpitations Respiratory: Denies: Dyspnea, Cough, Dyspnea on exertion Gastrointestinal: Denies: Abdominal pain, Nausea, Vomiting, Diarrhea, Melena, Hematochezia Musculoskeletal: Denies: Myalgias, Arthralgias Skin: Denies: Rash, Abscess Neurological: Denies: Headache, Weakness Psych: Denies: Depression, Anxiety Physical Exam Vital Signs/Narrative: Vital Signs Temp Pulse Resp BP Pulse Ox 04/30/20 19:20 97.8 F 68 18 186/66 H 98 General: Well nourished, No Acute Distress Head: Normocephalic, Atraumatic Eyes: Perrl, EOMI ENT: Moist mucous membranes, - - Bilateral epistaxis. Cardiovascular: Regular rate, Regular rhythm Respiratory: No distress, CTA bilaterally Skin: Normal color Neurological: Alert, Oriented x3 Psychological: Normal affect, Normal Mood Diagnostic/Tx/Re-eval - Medical Decision Making 70-year-old female presenting with epistaxis. She states it started on the right side and then started coming out of the left side when she started to clamp her nose. Patient states that she also had some the back of her throat. On exam he had difficulty blowing out the clots so I did use suction. After suctioning both nares the blood seems to be coming from the right nare. Inspection of the right nare shows moderately brisk bleeding and I cannot identify the source. I do believe it is posterior. I did attempt to put in a rapid Rhino however the patient was not tolerating this. Eventually I put in a Murocel with a mixture of Roman mix patient did have 2 faculty tolerating this but did initially get in. However each time I went to reexamine her it seemed to be is slightly further out of her nose. Her bleeding has stopped. I did offer to pull the Merocel out of her nose and placed this different Merisel, but given her not tolerating the procedure and the fact that her bleeding has stopped she did not wish to do that. Patient was monitored in the ER and had no rebleeding. She will be discharged home in stable condition. She states she has a ENT doctor that she can follow-up with. Impression: 1. Epistaxis ED Disposition - Plan for ED Patient: Disposition: Home or Assisted Living Instructions: Nosebleed Referrals: Declan Mauricio MD [Primary Care Provider] -
[2020-04-30 20:59] VITALS: BP 147/70; PULSE 65; RESP 18; O2SAT 93
--- NOTE | 2020-04-30 21:20 | ED.RN ---
PT DAUGHTER CONTACTED. DISCHARGE INSTRUCTIONS REVIEWED WITH DAUGHTER AND PT IS TO FOLLOW UP WITH DR. ZENDEJAS.
== END 2020-04-30 21:23 | disposition home or self-care (01) ==
LOC: ED 20:34
PROVIDERS: Emergency Provider Student in an Organized Health Care Education/Training Program; PCP Family Medicine
DX: R04.0 Epistaxis (principal); K21.9 Gastro-esophageal reflux disease without esophagitis; I10 Essential (primary) hypertension; E11.9 Type 2 diabetes mellitus without complications; Z79.4 Long term (current) use of insulin; Z79.899 Other long term (current) drug therapy; Z79.02 Long term (current) use of antithrombotics/antiplatelets; Z86.73 Personal history of transient ischemic attack (TIA), and cerebral infarction without residual deficits; Z87.891 Personal history of nicotine dependence
CPT/HCPCS: 30905; 99284; A4216

== ENCOUNTER → 2020-06-14 16:58 | Outpatient (CLI) | payer MEDICARE, SELFPAY ==
[2020-06-14 18:01] LABS: Absolute Lymphocyte Count 1.43 X10^3/uL (0.83-4.51); Absolute Neutrophil Count 7.6 X10^3/uL (2.0-7.7); Basophil# 0.04 X10^3/uL; Basophil% 0.4 % (0-1); Eosinophil# 0.16 X10^3/uL; Eosinophils% 1.6 % (0-5); Hematocrit 39.1 % (37-47); Hemoglobin 12.1 g/dL (12.0-15.0); Lymphocyte # 1.43 X10^3/ul (4.0); Lymphocyte % 14.6 % (19-41); Mean Corp Hgb Conc 30.9 g/dL (32-36); Mean Corpuscular Hgb 26.3 pg (27.0-32.0); Mean Platelet Vol. 11.2 fl (6.2-12.0); Monocyte# 0.54 X10^3/uL; Monocyte% 5.5 % (0-10); NRBC Flagged by Analyzer 0 % (0-5); Neutrophil # 7.59 X10^3/uL (2.7-7.7); Neutrophil % 77.6 % (47-70); Platelet Count 196 K/mm3 (150-450); RBC Distribution Width CV 15.6 % (11.6-14.6); White Blood Count 9.8 K/mm3 (4.4-11.0)
[2020-06-14 18:28] LABS: Hemoglobin A1c 7.1 % (3.8-5.6)
[2020-06-14 18:42] LABS: Vitamin D,25 Hydroxy 69.7 ng/mL
[2020-06-14 18:44] LABS: ALB/GLOB Ratio 0.7 RATIO (0.9-2.4); AST(SGOT) 12 U/L (15-37); Alanine Aminotransfer ALT/SGPT 16 U/L (13-56); Albumin, Serum 2.9 g/dL (3.2-5.0); Alkaline Phosphatase 146 U/L (45-117); Anion Gap 7 (5-15); BUN 18 mg/dL (7-18); BUN/Creat Ratio 14.3 RATIO (10-20); Calcium,Total 9.6 mg/dL (8.5-10.1); Chloride 105 mmol/L (98-107); Cholesterol 103 mg/dL (200); Creatinine, Serum 1.26 mg/dL (0.55-1.02); EST Glomerular Filtration Rate 45 mL/min (>60); Est Glom Filt Rate - Afr Amer 54 mL/min (>60); Globulin 4.1 g/dL (2.2-4.2); Glucose 107 mg/dL (74-106); High Density Lipoprotein 49 mg/dL; Phosphorus 2.9 mg/dL (2.5-4.9); Potassium 3.9 mmol/L (3.5-5.1); Sodium Level 140 mmol/L (136-145); Triglycerides 103 mg/dL; Very Low Density Lipoprotein 21 mg/dL (5-40)
[2020-06-14 19:35] LABS: Microalbumin:Creatinine Ratio 647.6 mg/g CRE (<30 mg/g CRE); Protein, Urine (Random) 192.1 mg/dL (<11.9); Protein:Creat Ratio 915 mg/g CRE (0-200)
[2020-06-15 08:27] LABS: PTHIN 136.3 pg/mL (18.4-80.1)
== END ==
LOC: MFPLAB 16:58
PROVIDERS: PCP Family Medicine; Referring Provider Family Medicine; Visit Provider Family Medicine
DX: I10 Essential (primary) hypertension (principal); D35.1 Benign neoplasm of parathyroid gland; E55.9 Vitamin D deficiency, unspecified; E11.69 Type 2 diabetes mellitus with other specified complication; E11.22 Type 2 diabetes mellitus with diabetic chronic kidney disease; N18.9 Chronic kidney disease, unspecified
CPT/HCPCS: 36415; 80053; 80061; 82043; 82306; 82570; 83036; 83970; 84100; 84156; 85025

== ENCOUNTER → 2020-11-23 15:20 | Outpatient (CLI) | payer MEDICARE, SELFPAY ==
[2020-11-23 17:52] LABS: Absolute Lymphocyte Count 1.23 X10^3/uL (0.83-4.51); Absolute Neutrophil Count 7.1 X10^3/uL (2.0-7.7); Basophil# 0.04 X10^3/uL; Basophil% 0.4 % (0-1); Eosinophil# 0.18 X10^3/uL; Hematocrit 39.9 % (37-47); Hemoglobin 12.2 g/dL (12.0-15.0); Lymphocyte # 1.23 X10^3/ul (0.83-4.51); Lymphocyte % 13.5 % (19-41); Mean Corp Hgb Conc 30.6 g/dL (32-36); Mean Corpuscular Hgb 25.2 pg (27.0-32.0); Mean Corpuscular Volume 82.3 fL (81-99); Mean Platelet Vol. 10.8 fl (6.2-12.0); Monocyte# 0.56 X10^3/uL; Monocyte% 6.1 % (0-10); NRBC Flagged by Analyzer 0 % (0-5); Neutrophil # 7.05 X10^3/uL (2.7-7.7); Neutrophil % 77.5 % (47-70); Platelet Count 205 K/mm3 (150-450); RBC Distribution Width CV 15.7 % (11.6-14.6); Red Blood Count 4.85 M/mm3 (4.2-5.4); White Blood Count 9.1 K/mm3 (4.4-11.0)
[2020-11-23 17:56] LABS: Color, Urine Yellow (Yellow); Glucose, Dipstick Normal (Normal); Ketone-Dipstick Negative (Negative); Leukocyte Esterase-Dipstick Negative /ul (Negative); Nitrite-Dipstick Negative (Negative); Occult Blood-Urine 10 /ul (Negative); Protein-Dipstick 500 mg/dl (Negative); Urine Bilirubin Dipstick Negative (Negative); Urine Clarity Clear (Clear); Urine Urobilinogen Normal (Normal)
[2020-11-23 18:19] LABS: Vitamin D,25 Hydroxy 74.6 ng/mL
[2020-11-23 18:23] LABS: Hemoglobin A1c 6.7 % (3.8-5.6)
[2020-11-23 18:24] LABS: ALB/GLOB Ratio 0.8 RATIO (0.9-2.4); AST(SGOT) 10 U/L (15-37); Alanine Aminotransfer ALT/SGPT 17 U/L (13-56); Alkaline Phosphatase 123 U/L (45-117); Anion Gap 6 (5-15); BUN 17 mg/dL (7-18); BUN/Creat Ratio 17.5 RATIO (10-20); Calcium,Total 9.6 mg/dL (8.5-10.1); Chloride 105 mmol/L (98-107); Cholesterol 95 mg/dL (200); Creatinine, Serum 0.97 mg/dL (0.55-1.02); EST Glomerular Filtration Rate 60 mL/min (>60); Est Glom Filt Rate - Afr Amer 72 mL/min (>60); Globulin 3.9 g/dL (2.2-4.2); Glucose 85 mg/dL (74-106); High Density Lipoprotein 42 mg/dL; Phosphorus 2.9 mg/dL (2.5-4.9); Potassium 3.9 mmol/L (3.5-5.1); Protein, Total 6.9 g/dL (6.4-8.2); Sodium Level 140 mmol/L (136-145); Triglycerides 83 mg/dL; Very Low Density Lipoprotein 17 mg/dL (5-40)
[2020-11-23 18:35] LABS: Microalbumin:Creatinine Ratio 1225.8 mg/g CRE (<30 mg/g CRE); Protein, Urine (Random) 223.4 mg/dL (<11.9); Protein:Creat Ratio 1441 mg/g CRE (0-200)
[2020-11-24 10:00] LABS: PTHIN 113.5 pg/mL (18.4-80.1)
== END ==
LOC: MFPLAB 15:21
PROVIDERS: PCP Family Medicine; Referring Provider Family Medicine; Visit Provider Family Medicine
DX: I10 Essential (primary) hypertension (principal); D35.1 Benign neoplasm of parathyroid gland; R80.9 Proteinuria, unspecified; E55.9 Vitamin D deficiency, unspecified; E11.69 Type 2 diabetes mellitus with other specified complication
CPT/HCPCS: 36415; 80053; 80061; 81001; 81002; 82043; 82306; 82570; 83036; 83970; 84100; 84156; 85025

== ENCOUNTER 2021-04-30 15:14 | Outpatient (CLI) | payer MEDICARE, SELFPAY ==
[2021-04-30 15:19] LABS: Bacteria 0 SEEN /hpf (None Seen); Mucous, Urine 0 SEEN /hpf (<or=2+)
[2021-04-30 17:58] LABS: Absolute Lymphocyte Count 1.27 X10^3/uL (0.83-4.51); Absolute Neutrophil Count 7.9 X10^3/uL (2.0-7.7); Basophil# 0.04 X10^3/uL; Basophil% 0.4 % (0-1); Eosinophil# 0.12 X10^3/uL; Eosinophils% 1.2 % (0-5); Hematocrit 41.6 % (37-47); Hemoglobin 13.1 g/dL (12.0-15.0); Lymphocyte # 1.27 X10^3/ul (0.83-4.51); Lymphocyte % 12.7 % (19-41); Mean Corp Hgb Conc 31.5 g/dL (32-36); Mean Corpuscular Hgb 25.7 pg (27.0-32.0); Mean Corpuscular Volume 81.7 fL (81-99); Mean Platelet Vol. 11.4 fl (6.2-12.0); Monocyte# 0.58 X10^3/uL; Monocyte% 5.8 % (0-10); NRBC Flagged by Analyzer 0 % (0-5); Neutrophil # 7.94 X10^3/uL (2.7-7.7); Neutrophil % 79.6 % (47-70); Platelet Count 201 K/mm3 (150-450); RBC Distribution Width CV 15.5 % (11.6-14.6); RBC Distribution Width SD 46.2 fl (35.1-43.9); Red Blood Count 5.09 M/mm3 (4.2-5.4)
[2021-04-30 17:59] LABS: Color, Urine Yellow (Yellow); Glucose, Dipstick 100 mg/dl (Normal); Ketone-Dipstick 5 mg/dl (Negative); Leukocyte Esterase-Dipstick 25 /ul (Negative); Nitrite-Dipstick Negative (Negative); Occult Blood-Urine 25 /ul (Negative); Protein-Dipstick 500 mg/dl (Negative); Urine Bilirubin Dipstick Negative (Negative); Urine Clarity Sl. Cloudy (Clear); Urine Urobilinogen Normal (Normal)
[2021-04-30 18:32] LABS: Vitamin D,25 Hydroxy 68.2 ng/mL
[2021-04-30 18:37] LABS: Red Blood Cells-Urine 0-5 SEEN /hpf (0-5); Squamous Epithelial Cells - UA 0-5 SEEN /hpf (5-10); White Blood Cells 0-5 SEEN /hpf (0-5)
[2021-04-30 18:38] LABS: Amorphous Sediment 1+ URATE
[2021-04-30 18:44] LABS: Hemoglobin A1c 7.5 % (3.8-5.6)
[2021-04-30 18:47] LABS: ALB/GLOB Ratio 0.7 RATIO (0.9-2.4); AST(SGOT) 11 U/L (15-37); Alanine Aminotransfer ALT/SGPT 18 U/L (13-56); Alkaline Phosphatase 148 U/L (45-117); Anion Gap 7 (5-15); BUN 17 mg/dL (7-18); Calcium,Total 9.5 mg/dL (8.5-10.1); Chloride 102 mmol/L (98-107); Cholesterol 92 mg/dL (200); Creatinine, Serum 1.13 mg/dL (0.55-1.02); EST Glomerular Filtration Rate 50 mL/min (>60); Est Glom Filt Rate - Afr Amer 61 mL/min (>60); Globulin 4.4 g/dL (2.2-4.2); Glucose 94 mg/dL (74-106); High Density Lipoprotein 47 mg/dL; Phosphorus 1.7 mg/dL (2.5-4.9); Potassium 3.8 mmol/L (3.5-5.1); Protein, Total 7.4 g/dL (6.4-8.2); Sodium Level 135 mmol/L (136-145); Thyroid Stim Hormone (TSH) 4.26 uIU/mL (0.358-3.74); Triglycerides 62 mg/dL; Very Low Density Lipoprotein 12 mg/dL (5-40)
[2021-04-30 18:58] LABS: Protein, Urine (Random) 634.3 mg/dL (<11.9); Protein:Creat Ratio 2883 mg/g CRE (0-200)
[2021-04-30 19:08] LABS: Microalbumin:Creatinine Ratio 2241.4 mg/g CRE (<30 mg/g CRE)
[2021-05-01 08:26] LABS: PTHIN 178.8 pg/mL (18.4-80.1)
== END 2021-04-30 23:59 | disposition home or self-care (01) ==
LOC: MFPLAB 15:16
PROVIDERS: PCP Family Medicine; Visit Provider Family Medicine
DX: E13.9 Other specified diabetes mellitus without complications (principal); E11.69 Type 2 diabetes mellitus with other specified complication; E11.22 Type 2 diabetes mellitus with diabetic chronic kidney disease; N18.30 Chronic kidney disease, stage 3 unspecified; D35.1 Benign neoplasm of parathyroid gland; I10 Essential (primary) hypertension; E55.9 Vitamin D deficiency, unspecified; R79.89 Other specified abnormal findings of blood chemistry
CPT/HCPCS: 36415; 80053; 80061; 81001; 82043; 82306; 82570; 83036; 83970; 84100; 84156; 84432; 84439; 84443; 85025; 86376; 86800

== ENCOUNTER → 2021-05-16 | Outpatient (CLI) | payer MEDICARE, SELFPAY | END | disposition home or self-care (01) | LOC: MFPLAB 16:12 | PROVIDERS: PCP Family Medicine; Referring Provider Family Medicine; Visit Provider Family Medicine | DX: N39.0 Urinary tract infection, site not specified (principal) | CPT/HCPCS: 87086; 87088 ==

== ENCOUNTER 2021-05-21 13:23 | Outpatient (CLI) | payer MEDICARE, SELFPAY ==
[2021-05-21 13:40] LABS: Bacteria 0 SEEN /hpf (None Seen); Mucous, Urine 0 SEEN /hpf (<or=2+)
[2021-05-21 17:11] LABS: Color, Urine Yellow (Yellow); Glucose, Dipstick Normal (Normal); Ketone-Dipstick Negative (Negative); Leukocyte Esterase-Dipstick Negative /ul (Negative); Nitrite-Dipstick Negative (Negative); Occult Blood-Urine 25 /ul (Negative); Protein-Dipstick 500 mg/dl (Negative); Specific Gravity, Urine 1.025 (1.002-1.030); Urine Bilirubin Dipstick Negative (Negative); Urine Clarity Clear (Clear); Urine Urobilinogen Normal (Normal)
[2021-05-21 17:16] LABS: White Blood Cells 0-5 SEEN /hpf (0-5)
[2021-05-21 17:17] LABS: Red Blood Cells-Urine 0-5 SEEN /hpf (0-5); Squamous Epithelial Cells - UA 25-50 SEEN /hpf (5-10)
== END 2021-05-21 23:59 | disposition home or self-care (01) ==
PROVIDERS: Family Medicine; PCP Family Medicine; Visit Provider Family Medicine
DX: N39.0 Urinary tract infection, site not specified (principal)
CPT/HCPCS: 81001; 87086; 87088

== ENCOUNTER 2021-07-11 14:04 | Outpatient (CLI) | payer MEDICARE, SELFPAY ==
--- NOTE | 2021-07-11 14:12 | ECHOCS_ITS ---
Reason For Study: Murmur Procedure This was a 2D Doppler, Color Flow transthoracic echocardiogram. The study was technically difficult. Contrast injection was performed. Exam performed in department. Left Ventricle Normal LV size. Moderate concentric left ventricular hypertrophy. Left ventricular systolic function is normal. The estimated ejection fraction is 65 %. No regional wall motion abnormalities noted. Right Ventricle Normal RV size. Normal systolic function. Atria The left atrium is moderately enlarged. Normal right atrium. No doppler evidence for ASD. Mitral Valve There is moderate to severe mitral annular calcification. Extension the mitral annular calcification onto the base of the posterior mitral valve leaflet. Mild mitral valve stenosis. Mild (1+) mitral valve insufficiency. Tricuspid Valve Normal tricuspid valve. Trivial tricuspid valve insufficiency. Unable to estimate RV systolic pressure/pulmonary artery pressure due to technically difficult study. Aortic Valve Trisinus/trileaflet aortic valve. Mild diffuse aortic valve thickening. Moderate diffuse aortic valve calcification. Moderate to severe aortic valve stenosis. Trivial aortic valve insufficiency. Pulmonic Valve The pulmonic valve is not well visualized. Great Vessels Normal sized aortic root. Calcified aortic root. Pericardium/Pleural No pericardial effusion. Medication Diluted definity 2ml given slow IV push to enhance endocardial definition. MMode/2D Measurements & Calculations LVIDd: 5.4 cm IVSd: 1.6 cm LVOT diam: 2.0 cm LVIDs: 3.2 cm LVPWd: 1.3 cm RVDd: 3.5 cm FS: 40.5 % LVOT area: 3.0 cm2 Ao root diam: 3.0 cm LAV(MOD-bp): 109.0 ml LVAd ap4: 37.5 cm2 LAV(MOD-bp) Indexed: 45.8 ml/m2 LVLd ap4: 9.1 cm LAV(MOD-sp2): 83.7 ml EDV(MOD-sp4): 129.1 ml LAV(MOD-sp4): 103.3 ml EDV(sp4-el): 131.7 ml LVAs ap4: 20.2 cm2 LVLs ap4: 7.0 cm ESV(MOD-sp4): 50.2 ml ESV(sp4-el): 49.4 ml EF(MOD-sp4): 61.1 % EF(sp4-el): 62.5 % SV(MOD-sp4): 78.9 ml SV(sp4-el): 82.3 ml LA A4 area: 31.9 cm2 LA dimension(2D): 3.9 cm RA A4 area: 12.0 cm2 Doppler Measurements & Calculations MV E max yusuf: 127.6 cm/sec Lat Peak E' Yusuf: 6.3 cm/sec Med Peak E' Yusuf: 4.1 cm/sec MV A max yusuf: 120.6 cm/sec E/E' lat: 20.4 E/E' med: 30.9 MV E/A: 1.1 MV V2 max: 151.7 cm/sec MV P1/2t max yusuf: 145.7 cm/sec Ao V2 max: 347.5 cm/sec MV max P.2 mmHg MV P1/2t: 127.1 msec Ao max P.5 mmHg MV V2 mean: 83.3 cm/sec Ao V2 mean: 244.7 cm/sec MV mean P.2 mmHg MV dec slope: 335.8 cm/sec2 Ao mean P.9 mmHg MV V2 VTI: 52.3 cm MVA(P1/2t): 1.7 cm2 Ao V2 VTI: 77.9 cm MVA(VTI): 1.3 cm2 MICHELLE(I,D): 0.90 cm2 MICHELLE(V,D): 0.82 cm2 AI max yusuf: 419.3 cm/sec LV V1 max: 94.3 cm/sec SV(LVOT): 70.4 ml AI max P.3 mmHg LV V1 max P.6 mmHg LV V1 mean P.0 mmHg AI dec slope: 256.2 cm/sec2 LV V1 mean: 66.3 cm/sec AI P1/2t: 479.3 msec LV V1 VTI: 23.3 cm PA V2 max: 126.0 cm/sec ECHO/Echo Complete W/ Contrast Interpretation Summary The study was technically difficult. Contrast injection was performed. Left ventricular systolic function is normal. The estimated ejection fraction is 65 %. Moderate concentric left ventricular hypertrophy. The left atrium is moderately enlarged. There is moderate to severe mitral annular calcification. Extension the mitral annular calcification onto the base of the posterior lisa l valve leaflet. Mild mitral valve stenosis. Mild (1+) mitral valve insufficiency. Trivial tricuspid valve insufficiency. Moderate to severe aortic valve stenosis. Trivial aortic valve insufficiency. Calcified aortic root. Unable to estimate RV systolic pressure/pulmonary artery pressure due to techni kathleen difficult study. Transmitral diastolic flow velocities suggest diastolic dysfunction (pseudonorm al pattern). Ordering Physician: Gurwinder Curran Referring Physician: Declan Mauricio Performed By: Amaris Chen RDCS
== END 2021-07-11 23:59 | disposition home or self-care (01) ==
PROVIDERS: PCP Family Medicine; Visit Provider Internal Medicine Critical Care Medicine
DX: R09.02 Hypoxemia (principal); Z86.711 Personal history of pulmonary embolism
CPT/HCPCS: 93306; Q9957; A4216; C8929

== ENCOUNTER → 2021-07-17 | Outpatient (CLI) | payer MEDICARE, SELFPAY ==
[2021-07-17] MEDS: Zolpidem Tartrate 5 MG Tablet PO (21:55)
== END | disposition home or self-care (01) ==
PROVIDERS: PCP Family Medicine; Visit Provider Internal Medicine Critical Care Medicine
DX: G47.33 Obstructive sleep apnea (adult) (pediatric) (principal)
CPT/HCPCS: 95811

== ENCOUNTER → 2021-09-18 | Outpatient (CLI) | payer MEDICARE, SELFPAY ==
--- NOTE | 2021-09-19 09:54 | PFT ---
INTRODUCTION: The patient is a 71-year-old female that presents for pulmonary function studies secondary to a diagnosis of hypoxemia. Respiratory therapy reported good patient effort. Bronchodilators were used during testing. INTERPRETATION: Forced expiration spirometry demonstrates no evidence of a large airways obstructive ventilatory defect. There was no significant response to aerosolized bronchodilators. Spirograms are of good quality and plateau normally. Body plethysmography was performed and reveals lung volumes to be within normal limits. Diffusing capacity by single breath CO is reduced at 42% of predicted. IMPRESSION: Isolated reduction in diffusing capacity, which could be related to an underlying pulmonary vascular disorder such as pulmonary hypertension.
== END | disposition home or self-care (01) ==
LOC: PSN 12:35
PROVIDERS: PCP Family Medicine; Referring Provider Internal Medicine Critical Care Medicine; Visit Provider Internal Medicine Critical Care Medicine
DX: R09.02 Hypoxemia (principal)
CPT/HCPCS: 94060; 94726; 94729

== ENCOUNTER 2021-10-03 13:00 | Outpatient (CLI) | payer MEDICARE, SELFPAY ==
[2021-10-03 13:22] LABS: Mucous, Urine 0 SEEN /hpf (<or=2+)
[2021-10-03 15:23] LABS: Absolute Lymphocyte Count 1.61 X10^3/uL (0.83-4.51); Absolute Neutrophil Count 8.3 X10^3/uL (2.0-7.7); Basophil# 0.05 X10^3/uL; Basophil% 0.5 % (0-1); Color, Urine Yellow (Yellow); Eosinophil# 0.17 X10^3/uL; Eosinophils% 1.6 % (0-5); Glucose, Dipstick Normal (Normal); Hematocrit 37.4 % (37-47); Hemoglobin 11.5 g/dL (12.0-15.0); Ketone-Dipstick Negative (Negative); Leukocyte Esterase-Dipstick Negative /ul (Negative); Lymphocyte # 1.61 X10^3/ul (0.83-4.51); Mean Corp Hgb Conc 30.7 g/dL (32-36); Mean Corpuscular Hgb 25.3 pg (27.0-32.0); Mean Corpuscular Volume 82.2 fL (81-99); Mean Platelet Vol. 11.8 fl (6.2-12.0); Monocyte# 0.58 X10^3/uL; Monocyte% 5.4 % (0-10); NRBC Flagged by Analyzer 0 % (0-5); Neutrophil # 8.25 X10^3/uL (2.7-7.7); Neutrophil % 76.9 % (47-70); Nitrite-Dipstick Negative (Negative); Occult Blood-Urine 10 /ul (Negative); Platelet Count 194 K/mm3 (150-450); Protein-Dipstick 30 mg/dl (Negative); RBC Distribution Width CV 15.8 % (11.6-14.6); RBC Distribution Width SD 47.8 fl (35.1-43.9); Red Blood Count 4.55 M/mm3 (4.2-5.4); Urine Bilirubin Dipstick Negative (Negative); Urine Clarity Clear (Clear); Urine Urobilinogen Normal (Normal); White Blood Count 10.7 K/mm3 (4.4-11.0)
[2021-10-03 15:59] LABS: Bacteria RARE /hpf (None Seen); Red Blood Cells-Urine 0-5 SEEN /hpf (0-5); Squamous Epithelial Cells - UA 0-5 SEEN /hpf (5-10); White Blood Cells 0-5 SEEN /hpf (0-5)
[2021-10-03 16:01] LABS: ALB/GLOB Ratio 0.8 RATIO (0.9-2.4); AST(SGOT) 10 U/L (15-37); Alanine Aminotransfer ALT/SGPT 15 U/L (13-56); Albumin, Serum 3.1 g/dL (3.2-5.0); Alkaline Phosphatase 127 U/L (45-117); Anion Gap 3 (5-15); BUN 22 mg/dL (7-18); BUN/Creat Ratio 15.1 RATIO (10-20); Chloride 100 mmol/L (98-107); Cholesterol 126 mg/dL (200); Creatinine, Serum 1.46 mg/dL (0.55-1.02); EST Glomerular Filtration Rate 37 mL/min (>60); Est Glom Filt Rate - Afr Amer 45 mL/min (>60); Glucose 134 mg/dL (74-106); High Density Lipoprotein 57 mg/dL; Potassium 3.5 mmol/L (3.5-5.1); Protein, Total 7.1 g/dL (6.4-8.2); Sodium Level 137 mmol/L (136-145); Triglycerides 76 mg/dL; Very Low Density Lipoprotein 15 mg/dL (5-40)
[2021-10-03 16:05] LABS: Hemoglobin A1c 7.4 % (3.8-5.6)
[2021-10-03 16:18] LABS: Microalbumin:Creatinine Ratio 548.7 mg/g CRE (<30 mg/g CRE)
== END 2021-10-03 23:59 | disposition home or self-care (01) ==
PROVIDERS: PCP Family Medicine; Referring Provider Family Medicine; Visit Provider Family Medicine
DX: E13.9 Other specified diabetes mellitus without complications (principal); E11.69 Type 2 diabetes mellitus with other specified complication; E11.22 Type 2 diabetes mellitus with diabetic chronic kidney disease; N18.9 Chronic kidney disease, unspecified; E55.9 Vitamin D deficiency, unspecified
CPT/HCPCS: 36415; 80053; 80061; 81001; 82043; 82306; 82570; 83036; 84100; 85025

== ENCOUNTER 2021-11-28 16:58 | Emergency (ER) | payer MEDICARE, SELFPAY ==
[2021-11-28 17:00] VITALS: BP 134/80; PULSE 58; RESP 18; TEMP 36.7; O2SAT 100; BMI 55.8
--- NOTE | 2021-11-28 17:30 | EDS_ITS ---
HPI History of Present Illness HPI Narrative: Fall with left lateral fibula pain. Chief Complaint: Lower Extremity Injury Informant: patient and family Occured/Mechanism Mechanism/Context: Yes injury and Yes blunt trauma Onset/Context/Timing Onset: Today and Hours Context: Sudden Onset Timing: Continuous Quality of Pain: Aching Current Severity: Mild Maximum Severity: Mild Associated Symptoms Associated Symptoms: Negative for Parasthesia, Weakness or Loss of Funtion Narrative Narrative: 71-year-old female history of prior stroke, diabetes and DVT and PE. Currently on no blood thinners. She is walking at home tripped fell injuring her left lower leg laterally. Has had prior left knee replacement surgery. This occurred about an hour and 15 minutes ago. She denies any head injury. No LOC. No chest, abdomen or back pain from the fall. Paramedics brought her in. She is not been up trying to ambulate on this as of yet. Prior similar symptoms: No Recent Illness/Hospitalization: No PFSH PFSH Medical History Asthma COVID (03/2021) CVA (cerebral vascular accident) (06/06/16) Depression Diabetes Diabetes 1.5, managed as type 1 Essential hypertension Gastroenteritis GERD (gastroesophageal reflux disease) History of DVT of lower extremity History of pulmonary embolism (12/28/14) Left ventricular hypertrophy Mitral valve annular calcification Morbid obesity with BMI of 60.0-69.9, adult Obstructive sleep apnea Osteoarthritis of left knee Home Medications ergocalciferol (vitamin D2) 1,250 mcg (50,000 unit) capsule 50,000 unit PO .QWEEKSUNDAY 02/16/14 [History Last Taken 06/02/16] loratadine 10 mg tablet 10 mg PO DAILY 02/16/14 [History Last Taken 06/06/16] metoprolol tartrate 25 mg tablet 25 mg PO BID 02/16/14 [History Last Taken 06/06/16] atorvastatin 80 mg tablet 80 mg PO QHS 08/17/21 [History Last Taken Unknown] fluticasone propionate 50 mcg/actuation nasal spray,suspension (Flonase Allergy Relief) 1 spray intranasal DAILY 08/17/21 [History Last Taken Unknown] insulin aspart U-100 100 unit/mL subcutaneous cartridge (Novolog PenFill U-100 Insulin aspart) 38 unit subcut .COMPLEX 08/17/21 [History Last Taken Unknown] insulin degludec 200 unit/mL (3 mL) subcutaneous pen (Tresiba FlexTouch U-200 insulin) 160 unit subcut DAILY 08/17/21 [History Last Taken Unknown] losartan 100 mg tablet 100 mg PO DAILY 08/17/21 [History Last Taken Unknown] venlafaxine 100 mg tablet 100 mg PO BID 08/17/21 [History Last Taken Unknown] furosemide 40 mg tablet (Lasix) 40 mg PO DAILY #90 tabs 08/22/21 [Rx Last Taken Unknown] sertraline 100 mg tablet 100 mg PO DAILY 08/22/21 [History Last Taken Unknown] Gemtesa 75 mg DAILY 10/12/21 [History Last Taken Unknown] Allergy/AdvReac Type Severity Reaction Status Date / Time cefaclor [From Ceclor] Allergy Unknown Verified 11/28/21 17:04 celecoxib [From Celebrex] Allergy Unknown Verified 11/28/21 17:04 cephalexin monohydrate Allergy Anaphylaxis Verified 11/28/21 17:04 [From Keflex] clindamycin Allergy Shortness Verified 11/28/21 17:04 of breath glyburide,micronized Allergy Unknown Verified 11/28/21 17:04 [From Glynase] Sulfa (Sulfonamide Allergy Rash Verified 11/28/21 17:04 Antibiotics) Tetanus Vaccines and Toxoid Allergy Anaphylaxis Verified 11/28/21 17:04 [Tetanus Vaccines & Toxoid] ROEL Inhibitors AdvReac Other Verified 11/28/21 17:04 [id number] AdvReac Other Verified 11/28/21 17:04 [From Beano] amlodipine besylate AdvReac Other Verified 11/28/21 17:04 [From Norvasc] cyclobenzaprine HCl AdvReac Other Verified 11/28/21 17:04 [From Flexeril] lovastatin AdvReac Nausea Verified 11/28/21 17:04 terfenadine [From Seldane] AdvReac Unknown Verified 11/28/21 17:04 theophylline AdvReac Unknown Verified 11/28/21 17:04 ENVIROMENTAL ALLERGIES Allergy Unknown Uncoded 11/28/21 17:04 BEANO W/ NORVASC AdvReac Other Uncoded 11/28/21 17:04 Family History Mother Dementia Surgical History History of ankle surgery History of section History of left knee surgery Social History Smoking Status: Former smoker Tobacco: How many years used: 4 how long ago did patient quit smokin, lite smoker second hand exposure: Yes ROS ROS ED ROS Narrative Denies recent illness. Review of Systems ROS Unobtainable: Denies due to encephalopathy Constitutional Constitutional ED: Denies chills or fever(s) Eyes Eyes: Denies blurry vision ENT ENT ED: Denies ear pain Cardiovascular Cardiovascular: Denies chest pain Respiratory/Chest Respiratory/Chest: Denies cough or dyspnea Gastrointestinal Gastrointestinal: Denies abdominal pain Genitourinary Genitourinary ED: Denies dysuria or hematuria Integumentary Denies abscess Neurologic Neurologic: Denies headache(s) Psychiatric Psychiatric: Denies anxiety Endocrine Endocrinology: Denies polydipsia Hematologic/Lymphatic Hematologic/Lymphatic: Denies easy bleeding Allergic/Immunologic Allergic/Immunologic ED: Denies mouth swelling or tongue swelling EXAM Physical Exam Narrative Exam Narrative: 71-year-old female no acute distress. Vital signs stable afebrile. Pulse ox 100% on 3 L. History of being on oxygen. H EENT exam evaluated to light. No signs of trauma to her face or dentition. No scalp tenderness or hematoma. C- spine nontender. Trachea midline. Thoracic, lumbar and back nontender. Chest wall nontender. Lungs are clear. Heart regular rhythm rate about 60 no murmur. Abdomen obese soft nontender normal bowel sounds no peritoneal signs. Pelvic girdle intact. No shortening or rotation. She is able to flex and extend both hips, knees and ankles. Left lower leg laterally on the mid the proximal portion of the fibula she has tenderness and mild swelling. Resting plantarflexion intact to both ankles. Feet nontender. Neurologically she is awake alert with no focal motor deficits. Const Vital Signs: 11/28/21 17:00 Temperature 98.1 F Temperature Source Oral Pulse Rate 58 L Respiratory Rate 18 Blood Pressure 134/80 H Blood Pressure Mean 98 Pulse Ox 100 Oxygen Delivery Method Nasal Cannula Oxygen Flow Rate (L/min) 3 Positive well nourished, well developed and obese; Negative for cachectic, contractures or unkempt General Appearance ED: well developed and NAD; Negative for unkempt, cachectic or contractures Nutritional Appearance: obese; Negative for cachectic HEENT Reports moist mucous membranes normocephalic and atraumatic; Negative for trauma or tenderness Eyes General Eye ED: Negative for other Neck full ROM and supple Thyroid: Negative for tender Lymph Lymphatic: Negative for other Chest Wall inspection of chest normal and palpation of chest normal Chest: Negative for other Resp normal respiratory effort, no retractions and clear to auscultation bilaterally Effort and Inspection: Negative for pain with movement Auscultation: Negative for rales, rhonchi or wheezes Cardio regular rate, regular rhythm, S1 normal heart sound, S2 normal heart sound and no murmurs Rate: Negative for bradycardia or tachycardic Rhythm: Negative for abnormal rhythm Bruits: Negative for other GI non-tender, non-distended and no masses Inspection: Negative for abdominal distention Auscultation: normoactive bowel sounds Palpation: soft; Negative for tender or guarding Bladder / Kidney Exam: No other Back/Spine no CVA tenderness General Back: Negative for CVA tenderness Cervical Spine: Negative for cervical spine tenderness Thoracic Spine / Upper Back: Negative for thoracic spinal tenderness Lumbar Spine / Lower Back: Negative for lumbar spinal tenderness Extremity normal to inspection and full ROM Extremity Narrative: Tenderness left lower lateral leg. With mild swelling. No gross bony deformity. Prior knee replacement surgery. Has normal flexion-extension of both hips, both knees, both ankle and feet. Neuro oriented x3, CN's II-XII intact bilaterally and moves all extremities Sensorium / Orientation: alert, oriented to person, oriented to place and oriented to time; Negative for orientation impaired, confused, lethargic, stuporous or other Psych mental status grossly normal Appearance: Negative for unkempt Speech: No other Mood & Affect: Negative for anxious Skin no wounds Lesions: no lesions Rashes: no rashes Trauma: Negative for abrasion, laceration or puncture MDM MDM MDM Narrative Medical decision making narrative: 71-year-old tripped and fell at home complaining of pain left lower leg. Left tib-fib will be obtained. She was offered but did not anything currently for pain. Repeat exam unchanged. I went over the x-ray with the patient. We will attempt to ambulate her. She will be discharged home. Placed. Tylenol for pain. Radiography Diagnostic Testing: Clinical Impression(s) from Imaging Studies Tibia/Fibula X-Ray 11/28/21 17:38 IMPRESSION: 1. Complete left knee prosthesis without adjacent fractures or dislocations. 2. No fractures or dislocations of the left tibia and fibula. 3. Balanced left ankle joint. 4. Mild soft tissue swelling adjacent to the medial malleolus. Electronically Signed: Javier Greer MD at 18:36 EDT , Left tibia and fibula x-ray 2 views interpreted by myself and the radiologist shows no fracture. There is soft tissue swelling at the injury site. No dislocation. Prior prosthesis. Discharge Plan Triage Chief Complaint: Lower Extremity Injury ED Provider: Brando Ash Dx/Rx/DC Orders Clinical Impression: Fall, Contusion of left leg, History of diabetes mellitus, History of completed stroke Instructions: ED Contusion, Lower Extremity Prescriptions: No Action sertraline 100 mg tablet 100 mg PO DAILY furosemide [Lasix] 40 mg tablet 40 mg PO DAILY Qty: 90 3RF losartan 100 mg tablet 100 mg PO DAILY Tresiba FlexTouch U-200 200 unit/mL (3 mL) insulin pen 160 unit subcut DAILY insulin aspart U-100 [Novolog PenFill U-100 Insulin] 100 unit/mL cartridge 38 unit subcut .COMPLEX Rx Instructions: 38 units subcut TID with meals; venlafaxine 100 mg tablet 100 mg PO BID fluticasone propionate [Flonase Allergy Relief] 50 mcg/actuation spray,suspension 1 spray intranasal DAILY Rx Instructions: administer into each nostril atorvastatin 80 mg tablet 80 mg PO QHS ergocalciferol (vitamin D2) 50,000 UNIT capsule 50,000 unit PO .QWEEKSUNDAY Label Comments: supplement loratadine 10 MG tablet 10 mg PO DAILY Label Comments: allergies metoprolol tartrate 25 MG tablet 25 mg PO BID Label Comments: blood pressure Gemtesa 75 mg 75 mg DAILY Primary Care Provider: Declan Mauricio Referrals: Declan Mauricio MD [Primary Care Provider] - 1 Week if not improving Activity Restrictions/Additional Instructions: X-ray of your leg looks good. Nothing broken. Ice and elevate. Tylenol for pain. Follow-up with your doctor if not improving to be reevaluated. Disposition Disposition: Home, Self Care
--- NOTE | 2021-11-28 17:38 | RAD_ITS ---
STUDY: LEFT TIBIA AND FIBULA X-RAY SERIES OF 1735 HOURS ON 11/28/2021 REASON FOR EXAM: 71-year-old female with fall trauma and pain. TECHNIQUE: 4 view(s) of the tibia and fibula were obtained. COMPARISON: None. FINDINGS: Complete knee prosthesis without adjacent fractures or dislocations. No fractures or dislocations of the left tibia or fibula. No osseous lytic, sclerotic or mass lesions are evident. Balanced left ankle joint. Mild soft tissue swelling adjacent to the medial malleolus. Generous amount of soft tissue in the distal thigh and calf. RAD/Tibia & Fibula 2 Views IMPRESSION: 1. Complete left knee prosthesis without adjacent fractures or dislocations. 2. No fractures or dislocations of the left tibia and fibula. 3. Balanced left ankle joint. 4. Mild soft tissue swelling adjacent to the medial malleolus. Electronically Signed: Javier Greer MD at 18:36 EDT ,
[2021-11-28 19:00] VITALS: BP 132/78; PULSE 78; RESP 14; TEMP 37.2; O2SAT 99
== END 2021-11-28 19:38 | disposition home or self-care (01) ==
PROVIDERS: Emergency Provider Emergency Medicine; PCP Family Medicine; Visit Provider Emergency Medicine
DX: S80.12XA Contusion of left lower leg, initial encounter (principal); E11.9 Type 2 diabetes mellitus without complications; Z79.4 Long term (current) use of insulin; Z86.73 Personal history of transient ischemic attack (TIA), and cerebral infarction without residual deficits; I10 Essential (primary) hypertension; J45.909 Unspecified asthma, uncomplicated; E66.9 Obesity, unspecified; Z87.891 Personal history of nicotine dependence; Z79.899 Other long term (current) drug therapy; W01.0XXA Fall on same level from slipping, tripping and stumbling without subsequent striking against object, initial encounter
CPT/HCPCS: 73590; 99284

== ENCOUNTER → 2022-03-21 | Outpatient (CLI) | payer MEDICARE, SELFPAY ==
[2022-03-21 15:14] LABS: Mucous, Urine 0 SEEN /hpf (<or=2+); Red Blood Cells-Urine 0 SEEN /hpf (0-5); White Blood Cells 0 SEEN /hpf (0-5)
[2022-03-21 17:49] LABS: Absolute Lymphocyte Count 1.37 X10^3/uL (0.83-4.51); Absolute Neutrophil Count 10.7 X10^3/uL (2.0-7.7); Basophil# 0.04 X10^3/uL; Basophil% 0.3 % (0-1); Eosinophil# 0.14 X10^3/uL; Eosinophils% 1.1 % (0-5); Hematocrit 40.2 % (37-47); Hemoglobin 12.7 g/dL (12.0-15.0); Lymphocyte # 1.37 X10^3/ul (0.83-4.51); Lymphocyte % 10.5 % (19-41); Mean Corp Hgb Conc 31.6 g/dL (32-36); Mean Corpuscular Volume 82.2 fL (81-99); Mean Platelet Vol. 11.4 fl (6.2-12.0); Monocyte# 0.66 X10^3/uL; Monocyte% 5.1 % (0-10); NRBC Flagged by Analyzer 0 % (0-5); Neutrophil # 10.72 X10^3/uL (2.7-7.7); Neutrophil % 82.4 % (47-70); Platelet Count 177 K/mm3 (150-450); RBC Distribution Width SD 48.3 fl (35.1-43.9); Red Blood Count 4.89 M/mm3 (4.2-5.4)
[2022-03-21 18:19] LABS: ALB/GLOB Ratio 0.9 RATIO (0.9-2.4); AST(SGOT) 8 U/L (15-37); Alanine Aminotransfer ALT/SGPT 16 U/L (13-56); Albumin, Serum 3.1 g/dL (3.2-5.0); Alkaline Phosphatase 125 U/L (45-117); Anion Gap 9 (5-15); BUN 29 mg/dL (7-18); BUN/Creat Ratio 18.2 RATIO (10-20); Calcium,Total 9.6 mg/dL (8.5-10.1); Chloride 101 mmol/L (98-107); Cholesterol 117 mg/dL (200); Creatinine, Serum 1.59 mg/dL (0.55-1.02); EST Glomerular Filtration Rate 34 mL/min (>60); Est Glom Filt Rate - Afr Amer 41 mL/min (>60); Globulin 3.3 g/dL (2.2-4.2); Glucose 177 mg/dL (74-106); High Density Lipoprotein 51 mg/dL; Potassium 3.4 mmol/L (3.5-5.1); Protein, Total 6.4 g/dL (6.4-8.2); Sodium Level 138 mmol/L (136-145); Triglycerides 145 mg/dL; Very Low Density Lipoprotein 29 mg/dL (5-40)
[2022-03-21 18:51] LABS: Hemoglobin A1c 7.1 % (3.8-5.6)
[2022-03-21 19:31] LABS: Color, Urine Straw (Yellow); Glucose, Dipstick 1000 mg/dl (Normal); Ketone-Dipstick Negative (Negative); Leukocyte Esterase-Dipstick Negative /ul (Negative); Nitrite-Dipstick Negative (Negative); Occult Blood-Urine Negative /ul (Negative); Protein-Dipstick 30 mg/dl (Negative); Urine Bilirubin Dipstick Negative (Negative); Urine Clarity Clear (Clear); Urine Urobilinogen Normal (Normal)
[2022-03-21 21:02] LABS: Bacteria RARE /hpf (None Seen); Squamous Epithelial Cells - UA 0-5 SEEN /hpf (5-10)
[2022-03-21 21:14] LABS: Microalbumin:Creatinine Ratio 369.1 mg/g CRE (<30 mg/g CRE)
== END | disposition home or self-care (01) ==
LOC: MFPLAB 15:10
PROVIDERS: PCP Family Medicine; Referring Provider Family Medicine; Visit Provider Family Medicine
DX: E13.9 Other specified diabetes mellitus without complications (principal); E11.69 Type 2 diabetes mellitus with other specified complication; I10 Essential (primary) hypertension
CPT/HCPCS: 36415; 80053; 80061; 81001; 82043; 82570; 83036; 85025

== ENCOUNTER → 2022-06-07 | Outpatient (CLI) | payer MEDICARE, SELFPAY ==
[2022-06-07 13:45] LABS: Mucous, Urine 0 SEEN /hpf (<or=2+); Red Blood Cells-Urine 0 SEEN /hpf (0-5); White Blood Cells 0 SEEN /hpf (0-5)
[2022-06-07 14:59] LABS: Absolute Lymphocyte Count 1.73 X10^3/uL (0.83-4.51); Absolute Neutrophil Count 7.9 X10^3/uL (2.0-7.7); Basophil# 0.05 X10^3/uL; Basophil% 0.5 % (0-1); Eosinophil# 0.19 X10^3/uL; Eosinophils% 1.8 % (0-5); Hematocrit 42.4 % (37-47); Hemoglobin 12.9 g/dL (12.0-15.0); Lymphocyte # 1.73 X10^3/ul (0.83-4.51); Lymphocyte % 16.6 % (19-41); Mean Corp Hgb Conc 30.4 g/dL (32-36); Mean Corpuscular Hgb 25.5 pg (27.0-32.0); Mean Corpuscular Volume 83.8 fL (81-99); Mean Platelet Vol. 11.2 fl (6.2-12.0); Monocyte# 0.51 X10^3/uL; Monocyte% 4.9 % (0-10); NRBC Flagged by Analyzer 0 % (0-5); Neutrophil # 7.89 X10^3/uL (2.7-7.7); Neutrophil % 75.7 % (47-70); Platelet Count 192 K/mm3 (150-450); RBC Distribution Width CV 16.2 % (11.6-14.6); RBC Distribution Width SD 49.5 fl (35.1-43.9); Red Blood Count 5.06 M/mm3 (4.2-5.4); White Blood Count 10.4 K/mm3 (4.4-11.0)
[2022-06-07 15:19] LABS: Hemoglobin A1c 8.2 % (3.8-5.6)
[2022-06-07 15:24] LABS: Microalbumin:Creatinine Ratio 352.1 mg/g CRE (<30 mg/g CRE); Protein, Urine (Random) 41.8 mg/dL (<11.9); Protein:Creat Ratio 481 mg/g CRE (0-200)
[2022-06-07 16:01] LABS: Vitamin D,25 Hydroxy 79.3 ng/mL
[2022-06-07 16:09] LABS: ALB/GLOB Ratio 0.9 RATIO (0.9-2.4); AST(SGOT) 13 U/L (15-37); Alanine Aminotransfer ALT/SGPT 14 U/L (13-56); Albumin, Serum 3.1 g/dL (3.2-5.0); Alkaline Phosphatase 125 U/L (45-117); Anion Gap 9 (5-15); BUN 24 mg/dL (7-18); BUN/Creat Ratio 14.5 RATIO (10-20); Chloride 105 mmol/L (98-107); Creatinine, Serum 1.66 mg/dL (0.55-1.02); EST Glomerular Filtration Rate 32 mL/min (>60); Est Glom Filt Rate - Afr Amer 39 mL/min (>60); Globulin 3.6 g/dL (2.2-4.2); Glucose 325 mg/dL (74-106); Phosphorus 2.4 mg/dL (2.5-4.9); Potassium 3.8 mmol/L (3.5-5.1); Protein, Total 6.7 g/dL (6.4-8.2); Sodium Level 140 mmol/L (136-145)
[2022-06-07 19:00] LABS: Color, Urine Yellow (Yellow); Glucose, Dipstick 1000 mg/dl (Normal); Ketone-Dipstick Negative (Negative); Leukocyte Esterase-Dipstick Negative /ul (Negative); Nitrite-Dipstick Negative (Negative); Occult Blood-Urine Negative /ul (Negative); Protein-Dipstick 30 mg/dl (Negative); Specific Gravity, Urine 1.015 (1.002-1.030); Urine Bilirubin Dipstick Negative (Negative); Urine Clarity Clear (Clear); Urine Urobilinogen Normal (Normal)
[2022-06-07 19:07] LABS: Bacteria 1+ /hpf (None Seen); Squamous Epithelial Cells - UA 0-5 SEEN /hpf (5-10)
== END | disposition home or self-care (01) ==
LOC: MFPLAB 13:43
PROVIDERS: PCP Family Medicine; Referring Provider Family Medicine; Visit Provider Family Medicine
DX: E13.9 Other specified diabetes mellitus without complications (principal); E11.22 Type 2 diabetes mellitus with diabetic chronic kidney disease; N18.9 Chronic kidney disease, unspecified
CPT/HCPCS: 36415; 80053; 81001; 82043; 82306; 82570; 83036; 84100; 84156; 85025

== ENCOUNTER → 2022-09-06 | Outpatient (CLI) | payer MEDICARE, SELFPAY ==
[2022-09-06 11:26] LABS: Bacteria 0 SEEN /hpf (None Seen); Mucous, Urine 0 SEEN /hpf (<or=2+); Red Blood Cells-Urine 0 SEEN /hpf (0-5); Squamous Epithelial Cells - UA 0 SEEN /hpf (5-10); White Blood Cells 0 SEEN /hpf (0-5)
[2022-09-06 12:10] LABS: Absolute Lymphocyte Count 1.11 X10^3/uL (0.83-4.51); Absolute Neutrophil Count 6.8 X10^3/uL (2.0-7.7); Basophil# 0.05 X10^3/uL; Basophil% 0.6 % (0-1); Eosinophil# 0.12 X10^3/uL; Eosinophils% 1.4 % (0-5); Hematocrit 42.6 % (37-47); Lymphocyte # 1.11 X10^3/ul (0.83-4.51); Lymphocyte % 12.9 % (19-41); Mean Corp Hgb Conc 30.5 g/dL (32-36); Mean Corpuscular Hgb 25.5 pg (27.0-32.0); Mean Corpuscular Volume 83.5 fL (81-99); Mean Platelet Vol. 11.4 fl (6.2-12.0); Monocyte# 0.49 X10^3/uL; Monocyte% 5.7 % (0-10); NRBC Flagged by Analyzer 0 % (0-5); Neutrophil # 6.81 X10^3/uL (2.7-7.7); Neutrophil % 78.9 % (47-70); Platelet Count 163 K/mm3 (150-450); RBC Distribution Width CV 16.5 % (11.6-14.6); RBC Distribution Width SD 49.4 fl (35.1-43.9); White Blood Count 8.6 K/mm3 (4.4-11.0)
[2022-09-06 12:15] LABS: Color, Urine Yellow (Yellow); Glucose, Dipstick 1000 mg/dl (Normal); Ketone-Dipstick Negative (Negative); Leukocyte Esterase-Dipstick Negative /ul (Negative); Nitrite-Dipstick Negative (Negative); Occult Blood-Urine Negative /ul (Negative); Protein-Dipstick 15 mg/dl (Negative); Urine Bilirubin Dipstick Negative (Negative); Urine Clarity Sl. Cloudy (Clear); Urine Urobilinogen Normal (Normal)
[2022-09-06 12:29] LABS: PTHIN 250.3 pg/mL (18.4-80.1)
[2022-09-06 12:31] LABS: Vitamin D,25 Hydroxy 108.7 ng/mL
[2022-09-06 12:41] LABS: Microalbumin,Random Urine 71.5 mg/L (NO RANGE EST.); Microalbumin:Creatinine Ratio 283.7 mg/g CRE (<30 mg/g CRE); Protein:Creat Ratio 437 mg/g CRE (0-200)
[2022-09-06 12:52] LABS: ALB/GLOB Ratio 0.9 RATIO (0.9-2.4); AST(SGOT) 9 U/L (15-37); Alanine Aminotransfer ALT/SGPT 15 U/L (13-56); Albumin, Serum 3.1 g/dL (3.2-5.0); Alkaline Phosphatase 160 U/L (45-117); Anion Gap 7 (5-15); BUN 21 mg/dL (7-18); BUN/Creat Ratio 13.1 RATIO (10-20); Calcium,Total 9.7 mg/dL (8.5-10.1); Chloride 98 mmol/L (98-107); Cholesterol 104 mg/dL (200); EST Glomerular Filtration Rate 34 mL/min (>60); Est Glom Filt Rate - Afr Amer 41 mL/min (>60); Globulin 3.5 g/dL (2.2-4.2); Glucose 442 mg/dL (74-106); High Density Lipoprotein 46 mg/dL; Phosphorus 2.8 mg/dL (2.5-4.9); Potassium 3.7 mmol/L (3.5-5.1); Protein, Total 6.6 g/dL (6.4-8.2); Sodium Level 134 mmol/L (136-145); T4 Free Direct 0.92 ng/dL (0.76-1.46); Triglycerides 150 mg/dL; Very Low Density Lipoprotein 30 mg/dL (5-40)
[2022-09-09 17:07] LABS: Anti-Thyroglobulin AB < 1.0 IU/mL (0.0-0.9); Thyroglobulin, Serum Qt. 4.2 ng/mL (1.5-38.5); Thyroid Peroxidase AB < 9 IU/mL (0-34)
== END | disposition home or self-care (01) ==
LOC: MFPLAB 10:52
PROVIDERS: PCP Family Medicine; Visit Provider Family Medicine
DX: E13.9 Other specified diabetes mellitus without complications (principal); E11.69 Type 2 diabetes mellitus with other specified complication; E11.22 Type 2 diabetes mellitus with diabetic chronic kidney disease; R79.89 Other specified abnormal findings of blood chemistry; D35.1 Benign neoplasm of parathyroid gland; E55.9 Vitamin D deficiency, unspecified; N18.9 Chronic kidney disease, unspecified
CPT/HCPCS: 36415; 80053; 80061; 81001; 82043; 82306; 82570; 83036; 83970; 84100; 84156; 84432; 84439; 84443; 85025; 86376; 86800

== ENCOUNTER 2023-11-26 09:58 | Emergency (ER) | payer MEDICARE, SELFPAY ==
[2023-11-26 09:59] VITALS: BP 136/41; PULSE 103; RESP 24; TEMP 37.6; O2SAT 93; O2SAT 97
[2023-11-26 10:07] VITALS: BP 136/41; PULSE 100; RESP 24; TEMP 37.6; O2SAT 97
--- NOTE | 2023-11-26 10:09 | ED.VIS.DYS ---
HPI History of Present Illness Chief Complaint: Shortness of Breath Informant: patient and EMS Onset/Context/Timing Onset: Days Context: gradual Timing: Continuous Worsened by: Nothing Relieved by: Nothing Associated Symptoms cough, rhinorrhea, post nasal drip and sore throat; Negative for fever, chills, sweats, clear sputum, white sputum, yellow sputum or green sputum Chest Pain: Positive for None Narrative Narrative: Patient presents with shortness of breath that has been getting progressively worse over the past few days. Patient admits to a cough but denies any sputum production. Patient admits to some rhinorrhea and sore throat. Patient denies any fevers or chills. Patient denies any chest pain. Patient is a poor informant. Patient does not want to answer questions. Patient is on home oxygen at 3 to 4 L/min. 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, managed as type 1 Depression Osteoarthritis of left knee Morbid obesity with BMI of 60.0-69.9, adult Home Medications ?Medication ?Instructions ?Recorded ?Last Taken ?Type ergocalciferol (vitamin D2) 1,250 50,000 unit PO .QWEEKSUNDAY 02/16/14 06/02/16 History mcg (50,000 unit) capsule loratadine 10 mg tablet 10 mg PO DAILY 02/16/14 06/06/16 History metoprolol tartrate 25 mg tablet 25 mg PO BID 02/16/14 06/06/16 History atorvastatin 80 mg tablet 80 mg PO QHS 08/17/21 Unknown History insulin aspart U-100 100 unit/mL 38 unit subcut .COMPLEX 08/17/21 Unknown History subcutaneous cartridge (Novolog PenFill U-100 Insulin aspart) insulin degludec 200 unit/mL (3 150 unit subcut DAILY 08/17/21 Unknown History mL) subcutaneous pen (Tresiba FlexTouch U-200 insulin) losartan 100 mg tablet 100 mg PO DAILY 08/17/21 Unknown History venlafaxine 100 mg tablet 100 mg PO BID 08/17/21 Unknown History sertraline 100 mg tablet 100 mg PO DAILY 08/22/21 Unknown History dapagliflozin propanediol 5 mg 10 mg PO DAILY 12/13/21 Unknown History tablet (Farxiga) dapagliflozin propanediol 10 mg 10 mg PO DAILY 05/10/22 Unknown History tablet (Farxiga) furosemide 40 mg tablet See Rx Instructions .Route 07/29/22 Unknown Rx .COMPLEX #90 tabs Allergy/AdvReac Type Severity Reaction Status Date / Time cefaclor (From Ceclor) Allergy Unknown Verified 11/26/23 10:09 celecoxib (From Celebrex) Allergy Unknown Verified 11/26/23 10:09 cephalexin monohydrate (From Allergy Anaphylaxis Verified 11/26/23 10:09 Keflex) clindamycin Allergy Shortness Verified 11/26/23 10:09 of breath Environmental Allergies: Allergy PT UNABLE Verified 11/26/23 10:09 Uncoded TO RESPOND-NEEDS F/U glyburide,micronized (From Allergy Unknown Verified 11/26/23 10:09 Glynase) Sulfa (Sulfonamide Allergy Rash Verified 11/26/23 10:09 Antibiotics) Tetanus Vaccines and Toxoid Allergy Anaphylaxis Verified 11/26/23 10:09 (Tetanus Vaccines & Toxoid) ROEL Inhibitors AdvReac Other Verified 11/26/23 10:09 [id number] (From AdvReac Other Verified 11/26/23 10:09 Beano) amlodipine besylate (From AdvReac Other Verified 11/26/23 10:09 Norvasc) cyclobenzaprine HCl (From AdvReac Other Verified 11/26/23 10:09 Flexeril) lovastatin AdvReac Nausea Verified 11/26/23 10:09 terfenadine (From Seldane) AdvReac Unknown Verified 11/26/23 10:09 theophylline AdvReac Unknown Verified 11/26/23 10:09 Family History Mother Dementia Surgical History History of section History of ankle surgery History of left knee surgery Social History Smoking Status: Former smoker Tobacco: How many years used: 4 how long ago did patient quit smokin, lite smoker second hand exposure: Yes ROS ROS ED Review of Systems ROS Unobtainable: due to mental condition Constitutional Constitutional ED: Denies chills or fever(s) Eyes Eyes: Denies blurry vision or change in vision ENT ENT ED: Reports rhinorrhea and sore throat Cardiovascular Cardiovascular: Denies chest pain or palpitations Respiratory/Chest Respiratory/Chest: Reports cough and dyspnea Gastrointestinal Gastrointestinal: Denies nausea or vomiting Genitourinary Genitourinary ED: Denies dysuria or hematuria Musculoskeletal Musculoskeletal: Denies back pain or neck pain Neurologic Neurologic: Denies headache(s) EXAM Physical Exam Const Vital Signs: 11/26/23 09:59 11/26/23 10:07 11/26/23 10:24 Temperature 99.7 F H 99.7 F H Temperature Source Temporal Temporal Pulse Rate 103 H 100 Respiratory Rate 24 H 24 H Respiratory Effort Respiratory Depth Respiratory Pattern Blood Pressure 136/41 H 136/41 H Blood Pressure Mean 72 72 Pulse Ox 97 97 96 Oxygen Delivery Method Nasal Cannula Nasal Cannula Nasal Cannula Oxygen Flow Rate (L/min) 4 4 4 11/26/23 10:58 11/26/23 10:59 11/26/23 11:00 Temperature Temperature Source Pulse Rate 78 126 H Respiratory Rate 20 H 21 H Respiratory Effort Non-Labored Short of Breath Respiratory Depth Normal Respiratory Pattern Tachypnea Blood Pressure 114/43 L Blood Pressure Mean 66 Pulse Ox 97 Oxygen Delivery Method Nasal Cannula Nasal Cannula Oxygen Flow Rate (L/min) 4 4 Positive well nourished and well developed General Appearance ED: well developed HEENT Reports moist mucous membranes atraumatic Neck supple and no JVD Resp normal respiratory effort Auscultation: diminished lung sounds diffuse (Patient had poor inspiratory effort) Cardio regular rate and regular rhythm GI non-tender and non-distended Palpation: soft Neuro CN's II-XII intact bilaterally and no sensory deficits noted Sensorium / Orientation: alert Motor Exam: strength 5/5 throughout Psych Mood & Affect: depressed MDM MDM MDM Narrative Medical decision making narrative: Differential diagnosis includes pneumonia, COVID-19, influenza, RSV, viral illness, bronchitis, cardiac dysrhythmia, cardiac ischemia, pneumothorax, sepsis, electrolyte abnormality, and dehydration. EKG will be obtained to assess for cardiac dysrhythmia and cardiac ischemia. Chest x-ray will be obtained to assess for pneumonia and pneumothorax. Arterial blood gas will be obtained to assess for acid-base status and oxygenation. CBC will be obtained to assess for leukocytosis and anemia. Basic metabolic profile will be obtained to assess for electrolyte abnormality and renal function. High-sensitivity troponin will be obtained to assess for cardiac ischemia. 2-hour repeat high-sensitivity troponin will be obtained to assess for ongoing cardiac ischemia. Urinalysis will be obtained to assess for urinary tract infection. History & Record Review Additional record(s) reviewed:: Prior labs Lab Data Lab results narrative: CBC was reviewed. There is a mild leukocytosis of 18.8. There is a mild anemia with a hemoglobin of 9.8 and hematocrit 31.4. Platelets were slightly low at 124. Basic metabolic profile was reviewed. BUN was 23 and creatinine was 1.73. These are consistent with previous results. Serum lactate was reviewed and was normal at 1.5. Urinalysis was reviewed. Leukocyte esterase was 500 with greater than 100 white blood cells and 4+ bacteria. COVID-19 PCR was reviewed and was negative. Influenza PCR was reviewed and was negative for influenza A and influenza B. RSV PCR was reviewed and was negative. Labs: Laboratory Results - last 24 hr 11/26/23 11/26/23 10:20 10:50 WBC 18.8 H RBC 3.74 L Hgb 9.8 L Hct 31.4 L MCV 84.0 MCH 26.2 L MCHC 31.2 L RDW Std Deviation 49.0 H RDW Coeff of Cristina 16.0 H Plt Count 124 L MPV 11.4 Immature Gran % (Auto) 1.000 H Neut % (Auto) 86.7 H Lymph % (Auto) 3.9 L [place] % (Auto) 7.6 Eos % (Auto) 0.5 Baso % (Auto) 0.3 Absolute Neuts (auto) 16.3 H Absolute Lymphs (auto) 0.73 L Nucleated RBC % 0 PT Cancelled INR Cancelled APTT Cancelled Sodium 139 Potassium 3.7 Chloride 104 Carbon Dioxide 28.0 Anion Gap 7 BUN 23 H Creatinine 1.73 H Est GFR (MDRD) Af Amer 37 L Est GFR (MDRD) Non-Af 31 L BUN/Creatinine Ratio 13.3 Glucose 250 H Lactic Acid 1.5 Calcium 10.2 H Troponin I High Sens 339 H* Urine Color Yellow Urine Clarity Turbid Urine pH 6.0 Ur Specific [place] 1.025 Urine Protein 500 H Urine Glucose (UA) 100 H Urine Ketones 5 H Urine Occult Blood 250 H Urine Nitrite Negative Urine Bilirubin Negative Urine Urobilinogen 1 H Ur Leukocyte Esterase 500 H Urine RBC 0 SEEN Urine WBC >100 SEEN Ur Squamous Epith Cells 0 SEEN Urine Bacteria 4+ Urine Mucus 0 SEEN ABG Data Attestation: I personally reviewed and interpreted this ABG as follows: Interpretation: Arterial blood gas was reviewed. pH was 7.46 with a pCO2 of 39.7, pO2 of 74, bicarb of 28, and oxygen saturation of 95% on 4 L nasal cannula. ABG results: ABG 11/26/23 10:40 Specimen Type ART Sample Site R Radial pH 7.46 H Bicarbonate Actual 28.0 H Total CO2 29 Base Excess 4 H O2 Saturation 95 O2 % 4.0 ABG pCO2 39.7 ABG pO2 74 L Yuan Test Positive O2 Delivery Device Cannula Vent Mode Not entered EKG Initial EKG: Attestation: I personally reviewed and interpreted this EKG as follows: Interpretation: Sinus Rhythm (98) and Non-Specific ST Changes Comments: EKG was obtained. On my independent interpretation, shows normal sinus rhythm with a rate of 98. OK interval was normal at 174 ms. QRS interval was normal at 106 ms. QTc interval was borderline at 490 ms. Cordell was -2. There are nonspecific ST-T wave changes noted. There are no changes compared to previous EKG. Prior EKG tracings: available for review Prior: Unchanged (08/22/2021) Management Discussion w/another healthcare provider: Other (Hospice) Treatment and Re-Evaluation :: Patient was given a DuoNeb aerosol. Patient was given a dose of Levaquin for the urinary tract infection. Patient was given aspirin for her elevated troponin. Patient is DNR comfort care only and is on hospice. Patient stated she does not want any further testing done at this time. Hospice was contacted. They will arrange for transportation to their inpatient unit for continued antibiotics. Patient understands and is agreeable with the plan. All questions were answered. Discharge Plan Triage Chief Complaint: Shortness of Breath ED Provider: Apolinar To Dx/Rx/DC Orders Clinical Impression: Urinary tract infection, Elevated troponin, Diabetes Instructions: ED Cystitis Female Adult Prescriptions: No Action sertraline 100 mg tablet 100 mg PO DAILY losartan 100 mg tablet 100 mg PO DAILY Tresiba FlexTouch U-200 200 unit/mL (3 mL) insulin pen 150 unit subcut DAILY insulin aspart U-100 [Novolog PenFill U-100 Insulin] 100 unit/mL cartridge 38 unit subcut .COMPLEX Rx Instructions: 38 units subcut TID with meals; venlafaxine 100 mg tablet 100 mg PO BID atorvastatin 80 mg tablet 80 mg PO QHS ergocalciferol (vitamin D2) 50,000 UNIT capsule 50,000 unit PO .QWEEKSUNDAY Patient Comments: supplement loratadine 10 MG tablet 10 mg PO DAILY Patient Comments: allergies metoprolol tartrate 25 MG tablet 25 mg PO BID Patient Comments: blood pressure Farxiga 5 mg Tablet 10 mg PO DAILY Farxiga 10 mg Tablet 10 mg PO DAILY furosemide 40 mg tablet See Rx Instructions .ROUTE .COMPLEX Qty: 90 3RF Dose Instruction: Take 1 tablet by mouth once daily Rx Instructions: Take 1 tablet by mouth once daily Primary Care Provider: Declan Mauricio Referrals: Declan Mauricio MD [Primary Care Provider] - Print Language: Mauritian Disposition Disposition: Hospice in Medical Facility Discharge Location: [facility]
--- NOTE | 2023-11-26 10:17 | EKG12_ITS ---
Test Reason : Blood Pressure : / mmHG Vent. Rate : 098 BPM Atrial Rate : 098 BPM P-R Int : 174 ms QRS Dur : 106 ms QT Int : 384 ms P-R-T Axes : 044 -02 083 degrees QTc Int : 490 ms Normal sinus rhythm Nonspecific ST abnormality Prolonged QT Abnormal ECG Confirmed by STEW WHITMAN, AAKASH ([id number]), editor & co founder SANDRA PEREZ ([id number]) on 11/27/2023 1:48:54 PM Referred By: Confirmed By:AAKASH MATHIAS MD
[2023-11-26 10:24] VITALS: O2SAT 96
[2023-11-26 10:33] LABS: Absolute Lymphocyte Count 0.73 X10^3/uL (0.83-4.51); Absolute Neutrophil Count 16.3 X10^3/uL (2.0-7.7); Basophil# 0.05 X10^3/uL; Basophil% 0.3 % (0-1); Eosinophil# 0.09 X10^3/uL; Eosinophils% 0.5 % (0-5); Hematocrit 31.4 % (37-47); Hemoglobin 9.8 g/dL (12.0-15.0); Lymphocyte # 0.73 X10^3/ul (0.83-4.51); Lymphocyte % 3.9 % (19-41); Mean Corp Hgb Conc 31.2 g/dL (32-36); Mean Corpuscular Hgb 26.2 pg (27.0-32.0); Mean Platelet Vol. 11.4 fl (6.2-12.0); Monocyte# 1.43 X10^3/uL; Monocyte% 7.6 % (0-10); NRBC Flagged by Analyzer 0 % (0-5); Neutrophil # 16.33 X10^3/uL (2.7-7.7); Neutrophil % 86.7 % (47-70); Platelet Count 124 K/mm3 (150-450); Red Blood Count 3.74 M/mm3 (4.2-5.4); White Blood Count 18.8 K/mm3 (4.4-11.0)
--- NOTE | 2023-11-26 10:38 | ED.RN ---
Per Carmen (hospice nurse) pt is a hospice patient and wasn't supposed to be sent here. Patients daughter called and would like her to get antibiotic if needed for UTI and go home on hospice. Dr To aware
[2023-11-26 10:44] LABS: Allen Test Positive; Base Excess 4 mmol/L (-2 to +2); Blood Gas Specimen Type ART; Mode Not entered; O2 Delivery Device Cannula; PO2 74 mmHG (75-100); SITE R Radial; SO2 95 % (95-99); Total Carbon Dioxide 29 mmol/L; pCO2 39.7 mmHg (35-45); pH 7.46 (7.35-7.45)
--- NOTE | 2023-11-26 10:46 | NURSING ---
BLUE TOP REDRAW
--- NOTE | 2023-11-26 10:51 | ED.RN ---
Carmen hospice nurse phone number [phone]
--- NOTE | 2023-11-26 10:54 | ED.RN ---
PT IS WANTING ALL TEST AND TREATMENT STOPPED. PT STATES SHE IS ON HOSPICE. HOSPICE WAS CALLED AND CONFIRMED SHE IS A DNRCC AND HOSPICE PT. CONVINCED PT TO WAIT FOR HER URINE TEST TO COME BACK SO SHE CAN GET ANTIBIOTICS IF NECESSARY AND THE WE CAN GET TRANSPORT HOME FOR HER. FAMILY IS ALSO REQUESTING HER URINE BE TESTED. BARRERA STAT LOCK PLACED AND BAG CHANGED D/T PRESENT BAG LEAKING.
[2023-11-26 10:57] LABS: Mucous, Urine 0 SEEN /hpf (<or=2+); Red Blood Cells-Urine 0 SEEN /hpf (0-5); Squamous Epithelial Cells - UA 0 SEEN /hpf (5-10)
[2023-11-26] MEDS: Ipratropium/Albuterol Sulfate 3 ML AMPUL.NEB INHALATION (10:57)
--- NOTE | 2023-11-26 10:57 | ED.RN ---
Carmen from hospice called. They will be trying to get the patient to the [facility]. They will call back and let us know if this is possible. Jada Vargas RN aware and Dr To is also aware.
[2023-11-26 10:58] VITALS: PULSE 78; RESP 20
[2023-11-26 10:59] VITALS: O2SAT 96
[2023-11-26 11:00] VITALS: BP 114/43; PULSE 126; RESP 21; O2SAT 97
[2023-11-26 11:01] LABS: Color, Urine Yellow (Yellow); Glucose, Dipstick 100 mg/dl (Normal); Ketone-Dipstick 5 mg/dl (Negative); Leukocyte Esterase-Dipstick 500 /ul (Negative); Nitrite-Dipstick Negative (Negative); Occult Blood-Urine 250 /ul (Negative); Protein-Dipstick 500 mg/dl (Negative); Specific Gravity, Urine 1.025 (1.002-1.030); Urine Bilirubin Dipstick Negative (Negative); Urine Clarity Turbid (Clear); Urine Urobilinogen 1 mg/dl (Normal)
[2023-11-26 11:03] LABS: Lactic Acid 1.5 mmol/L (0.4-1.9)
[2023-11-26 11:05] LABS: Anion Gap 7 (5-15); BUN 23 mg/dL (7-18); BUN/Creat Ratio 13.3 RATIO (10-20); Calcium,Total 10.2 mg/dL (8.5-10.1); Chloride 104 mmol/L (98-107); Creatinine, Serum 1.73 mg/dL (0.55-1.02); EST Glomerular Filtration Rate 31 mL/min (>60); Est Glom Filt Rate - Afr Amer 37 mL/min (>60); Glucose 250 mg/dL (74-106); Potassium 3.7 mmol/L (3.5-5.1); Sodium Level 139 mmol/L (136-145); Troponin-I HS (w/2H Reflex) 339 pg/mL (3.0-54.0)
[2023-11-26 11:16] LABS: Bacteria 4+ /hpf (None Seen); White Blood Cells >100 SEEN /hpf (0-5)
[2023-11-26] MEDS: levoFLOXacin IV 750 MG/150 ML BAG 100 MG IV (11:43)
[2023-11-26] MEDS: Aspirin 81 MG TAB.CHEW 324 MG PO (12:07)
[2023-11-26 12:27] LABS: Reflex Troponin-HS? (from REC) Y
== END 2023-11-26 13:31 | disposition hospice, inpatient (51) ==
PROVIDERS: Emergency Provider Emergency Medicine; PCP Family Medicine; Visit Provider Emergency Medicine
DX: N39.0 Urinary tract infection, site not specified (principal); E13.9 Other specified diabetes mellitus without complications; I10 Essential (primary) hypertension; R06.02 Shortness of breath; J02.9 Acute pharyngitis, unspecified; Z87.891 Personal history of nicotine dependence; R79.89 Other specified abnormal findings of blood chemistry; K21.9 Gastro-esophageal reflux disease without esophagitis
CPT/HCPCS: 36600; 80048; 81001; 82803; 83605; 84484; 85025; 87040; 87077; 87086; 87088; 87149; 87186; 87631; 93005; 94640; 96365; 96366; 99284; A4216